=== PATIENT | female | born 1930 | race Caucasian/White ===

== ENCOUNTER 2018-01-26 17:20 | Inpatient (IN) | payer OTHER, MEDICARE ==
[~2018-01-26] VITALS: Ht 160 cm; Wt 62.8 kg
[2018-01-26] MEDS ORDERED: POLYMYXIN B-TMP10 ML OPH (17:32)
[2018-01-26] MEDS ORDERED: SIMVASTATIN10 M1 PO (17:33)
[2018-01-26] MEDS ORDERED: LEVOTHYROXINE50 MCG PO (17:35)
[2018-01-26] MEDS ORDERED: CARBIDOPA-LEVO1 EAC7 PO (17:36)
[2018-01-26] MEDS ORDERED: COZAAR100 M1 PO (17:36)
[2018-01-26] MEDS ORDERED: ESCITALOPRAM OXA5 MG PO (17:37)
[2018-01-26] MEDS ORDERED: ASPIRIN EC81 M1 PO (17:37)
[2018-01-26] MEDS ORDERED: MINOCYCLINE HCL50 M1 PO (17:38)
[2018-01-26] MEDS ORDERED: BETIMOL5 M1 OPH (17:39)
[2018-01-26] MEDS ORDERED: PREDNISOLONE ACE5 ML OPH (17:39)
[2018-01-26] MEDS ORDERED: DORZOLAMIDE HCL10 M1 OPH (17:40)
[2018-01-26] MEDS ORDERED: VITAMIN D400 UNI1 PO (17:41)
[2018-01-26] MEDS ORDERED: CRANBERRY200 MG PO (17:41)
[2018-01-26] MEDS ORDERED: MULTIVITAMINS1 EAC9 PO (17:42)
--- NOTE | 2018-01-26 17:59 | ED MVC/FALL/TRAUMA COMPLAINT ---
History of Present Illness General Chief Complaint: Fall Stated Complaint: FA Source: patient Exam Limitations: no limitations Vital Signs & Intake/Output Vital Signs & Intake/Output Vital Signs Date Time Temp Pulse Resp B/P B/P Pulse O2 O2 Flow FiO2 Mean Ox Delivery Rate 01/26 1936 98.6 68 18 179/63 99 Room Air 01/26 1729 97.7 76 18 180/85 100 Room Air Allergies Coded Allergies: No Known Allergies (01/26/18) Reconcile Medications Aspirin (Ecotrin*) 81 MG TABLET.DR 1 TAB PO DAILY HEART (Reported) Carbidopa/Levodopa (Carbidopa-Levodopa 25-100 Tab) 25 MG-100 MG TABLET 1 TAB PO TID PARKINSONS (Reported) Cholecalciferol (Vitamin D3) (Vitamin D) 400 UNIT CAPSULE (Unknown Dose) SUPPLEMENT (Reported) Cranberry Extract (Cranberry) 200 MG CAPSULE (Unknown Dose) UTI (Reported) Dorzolamide HCl 2 % DROPS 1 GTT OPH BID RIGHT CORNEA (Reported) Escitalopram Oxalate 5 MG TABLET 1 TAB PO DAILY ANXIETY (Reported) Levothyroxine Sodium 50 MCG TABLET 1 TAB PO DAILY HYPERLIPIDEMIA (Reported) Losartan (Cozaar) 100 MG TABLET 1 TAB PO DAILY HTN (Reported) Minocycline HCl 50 MG CAPSULE 1 CAP PO BID RIGHT CORNEA (Reported) Multiple Vitamin (Multivitamins) 1 EACH TABLET 1 TAB PO DAILY SUPPLEMENT ( Reported) Polymyxin B Sulf/Trimethoprim (Polymyxin B-Tmp Eye Drops) 10,000 UNIT-1 MG/ML DROPS 1 GTT OPH SYNTHETIC CORNEA (Reported) Prednisolone Acetate 1 % DROPS.SUSP 1 GTT OPH 4 TIMES/DAY RIGHT CORNEA ( Reported) Simvastatin (Simvastatin*) 10 MG TABLET 1 TAB PO QPM HYPERLIPIDEMIA (Reported ) Timolol (Betimol) 0.5 % DROPS 1 GTT OPH BID RIGHT CORNEA (Reported) Triage Note: PT BIBA FROM HOME C/O SLIP AND FALL OUT OF CHAIR AROUND 1530. PER EMS PT HAD -HEADSTRIKE, -LOC, -BLOOD THINNERS. EMS STATES PT WAS REACHING FOR A PAPER WHILE SITTING AND SLIPPED AND LANDED ON RIGHT SIDE. PT HAS A SORE ELBOW AND A SHORTENED AND ROTATED RIGHT LEG. PTS HIP IS 10/10 PAIN. PT NORMALLY AMBUALTES INDEPDENTENLY AT HOME, PT DENIES CP, SOB, DIZZINESS, ARM NUMBNESS/TINGLING, JAW OR BACK PAIN. PT HAS FALL RISK SOCKS AND BRACELET APPLIED. CHANGED INTO GOWN. PT DENIES ANY SYNCOPAL EPISODE. PT STATES NUMBNESS IN RIGHT FOOT, +PULSES AND PT +ROM OF RIGHT TOES UPON ASSESSMENT. Triage Nurses Notes Reviewed? yes Onset: Just prior to arrival Duration: minute(s):, constant, continues in ED, getting worse Timing: single episode today Severity: severe Injuries/Fall Location: lower extremity (right) Method of Injury: fall Loss of Consciousness: no loss of consciousness Modifying Factors: Worsens With: movement, palpation. HPI: Patient presents for evaluation of injury sustained status post fall prior to arrival. Patient is not sure of why she fell down but denies any associated syncope or loss of consciousness. She is however describing a constant severe right hip pain that worsens with palpation and movement. (Laura DOSHI,Nakul Whitlock) Past History Travel History Traveled to [facility] past 21 day No Medical History Any Pertinent Medical History? see below for history Neurological: Parkinson's disease EENT: R SYNTHETIC CORNEA Cardiovascular: hypertension, hyperlipidemia Psychiatric: anxiety Surgical History Surgical History: non-contributory Psychosocial History What is your primary language Yoruba Tobacco Use: Never used Family History Hx Contributory? No (Laura DOSHI,Nakul Whitlock) Review of Systems Review of Systems Constitutional: Reports: no symptoms. Eyes: Reports: no symptoms. Ears, Nose, Throat, Mouth: Reports: no symptoms. Respiratory: Reports: no symptoms. Cardiovascular: Reports: no symptoms. Gastrointestinal/Abdominal: Reports: no symptoms. Genitourinary: Reports: no symptoms. Musculoskeletal: Reports: see HPI. Skin: Reports: no symptoms. Neurological/Psychological: Reports: no symptoms. All Other Systems: Reviewed and Negative (Laura DOSHI,Nakul Whitlock) Physical Exam Physical Exam General Appearance: SEE BELOW Comments: Gen.: Well-nourished, well-developed, no acute respiratory distress. Mild distress at rest, severe distress with movement of the right lower extremity. Head: Normocephalic, atraumatic, nontender. Eyes: Normal inspection bilaterally, loren, EOMI Ears: Normal inspection bilaterally Nose: Normal inspection Throat/mouth : Moist mucosa Neck: Supple, full range of motion, no goiter, nontender Heart: Regular rate and rhythm, no murmurs rubs or gallops Lungs: Clear to auscultation bilaterally with normal air entry Chest: Nontender Back: Normal range of motion, nontender Abdomen: Soft, nontender, nondistended, normal bowel sounds Pelvis: Stable and nontender Extremities: Right lower extremity: Tenderness of the right hip with movement, the right lower chart is otherwise neurovascularly intact (normal posterior tibialis pulse, normal sensation, normal movement of the toes). The right lower extremity is however shortened and externally rotated. Neurologic: Cranial nerves grossly intact, speech is clear Skin: warm and dry and without ecchymoses or soft tissue swelling or erythema Psychiatric: Calm, cooperative, no apparent delusions or hallucinations Core Measures ACS in differential dx? No CVA/TIA Diagnosis No Sepsis Present: No Sepsis Focused Exam Completed? No (Laura DOSHI,Nakul Whitlock) Progress Differential Diagnosis: fracture, dislocation, sprain, strain Plan of Care: Orders Procedure Date/time Status Nothing by Mouth 01/27 B Active CBC WITHOUT DIFFERENTIAL 01/27 600 Active BASIC ELECTROLYTES PLUS BUN&CR 01/27 600 Active Pathway - chart 01/26 1951 Active Pathway - chart 01/26 1950 Active House Staff 01/26 1950 Active Patient Data 01/26 1950 Active Code Status 01/26 1950 Active Patient Data 01/26 194 Active ED Holding Orders 01/26 1941 Active Admit to inpatient 01/26 1941 Active Vital Signs 01/26 1941 Active Code Status 01/26 194 Complete Add-on Test (ER Only) 01/26 1921 Active Camacho, Insertion/Removal/Asses 01/26 1910 Active CULTURE,URINE 01/26 1910 Active URINALYSIS 01/26 175 Complete PROTHROMBIN TIME 01/26 175 Complete COMPREHENSIVE METABOLIC PANEL 01/26 175 Complete CBC WITHOUT DIFFERENTIAL 01/26 175 Complete EKG 01/26 175 Active VTE Mechanical Prophylaxis 01/26 UNK Active Current Medications Sig/Bozena Start time Last Medication Dose Stop Time Status Admin Heparin Sodium 5,000 UNIT Q8 01/26 2200 UNVr (Porcine) Acetaminophen 650 MG Q6P PRN 01/27 2000 UNVr (Tylenol) Acetaminophen 1,000 MG Q8P PRN 01/27 2000 UNVr (Ofirmev) Morphine Sulfate 2 MG Q4P PRN 01/27 2000 UNVr (Morphine) Laboratory Tests 01/26/181917: Urine Color YEL, Urine Clarity HAZY H, Urine pH 7.5, Ur Specific [place] 1.015, Urine Protein NEG, Urine Ketones NEG, Urine Nitrite NEG, Urine Bilirubin NEG, Urine Urobilinogen 0.2, Ur Leukocyte Esterase NEG, Ur Microscopic SEDIMENT EXAMINED, Urine RBC RARE, Urine WBC RARE, Ur Epithelial Cells FEW, Urine Bacteria PACKD H, Urine Mucus FEW, Urine Hemoglobin NEG, Urine Glucose NEG 01/26/18 1807: Anion Gap 10, Estimated GFR 59 L, BUN/Creatinine Ratio 36.7 H, Glucose 120 H, Calcium 10.2, Total Bilirubin 0.5, AST 28, ALT 21, Alkaline Phosphatase 71, Total Protein 6.5, Albumin 3.8, Globulin 2.7, Albumin/Globulin Ratio 1.4, PT 11.5, INR 1.05, CBC w Diff NO MAN DIFF REQ, RBC 3.95 L, MCV 94.1, MCH 30.8, MCHC 32.7 L, RDW 13.6, MPV 7.9, Gran % 62.4, Lymphocytes % 25.4, Monocytes % 9.5 H, Eosinophils % 2.4, Basophils % 0.3, Absolute Granulocytes 5.1, Absolute Lymphocytes 2.1, Absolute Monocytes 0.8 H, Absolute Eosinophils 0.2, Absolute Basophils 0 Microbiology 01/26 1918 URINE ROUT: Urine Culture - RECD Initial ED EKG: NSR, rate (82) Comments: 01/26/2018 6:56:00 PM 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 (Laura DOSHI,Nakul Whitlock) Diagnostic Imaging: Viewed by Me: Radiology Read. Discussed w/RAD: Radiology Read. Radiology Impression: PATIENT: ZEV COVARRUBIAS PRESENT AGE: 87 PATIENT ACCOUNT NO: [id number] : [birth year] LOCATION: [facility] ORDERING PHYSICIAN: Nakul Sanchez MD SERVICE DATE: 01/26/18 EXAM TYPE : RAD - XRY-AP PELVIS; XRY-CHEST XRAY, SINGLE VIEW; XRY-HIP 2-3 VIEWS, RIGHT EXAMINATION: XR CHEST XR PELVIS XR HIP, RIGHT CLINICAL INFORMATION: Status post fall. Shortening and external rotation of right lower extremity. COMPARISON: None TECHNIQUE: Frontal view of the chest was obtained. Frontal view the pelvis was obtained. 2 views of the right hip were obtained. FINDINGS: Chest: The lungs are mildly hyperexpanded. No focal consolidation, pneumothorax, or evidence of pleural effusion. No mediastinal widening. No acute osseous abnormalities. Pelvis/right hip: Comminuted intertrochanteric right femoral fracture noted, with varus alignment. The right femoral head is well situated over the acetabula. Pelvic rings are maintained. Lower lumbar degenerative changes. Decreased bone mineral density. Suspect bilateral gluteal injection granulomata. IMPRESSION: 1. Right intertrochanteric femoral fracture. 2. No evidence of traumatic thoracic pathology. DICTATED BY: Hans Prasad MD DATE/TIME DICTATED: 01/26/181908 COUNTY TREASURER:[place] DATE/TIME TRANSCRIBED:01/26/181908 CONFIDENTIAL, DO NOT COPY WITHOUT APPROPRIATE AUTHORIZATION. <Electronically signed in Other Vendor System> SIGNED BY: Hans Prasad MD 01/26/181913 Comments: D/W DR. NERI, HE WILL CONSULT. (Radha DOSHI,Zain Denise) Departure Departure Disposition: STILL A PATIENT Condition: Stable Clinical Impression Primary Impression: Closed right hip fracture Qualifiers: Encounter type: initial encounter Qualified Code: S72.001A - Fracture of unspecified part of neck of right femur, initial encounter for closed fracture Referrals: Kathie Selby MD (PCP/Family) Departure Forms: Customer Survey General Discharge Information (Laura DOSHI,Nakul Whitlock) Admission Note Spoke With: Zuri Laws MD Documentation of Exam: Documentation of any treatments & extenuating circumstances including Concerns Regarding Discharge (functional status, medication knowledge or non-compliance, living conditions, etc.) that warrant an admission rather than observation: [ ORTHO CONSULT FOR SURGICAL INTERVENTION ONCE MEDICALLY CLEARED, IV PAIN CONTROL, POSTOP PT EVALUATION] (Zain Garcia MD)
[2018-01-26 18:22] LABS: ABSOLUTE BASOPHIL COUNT 0 /CUMM (0.0-0.2); ABSOLUTE EOSINOPHIL COUNT 0.2 /CUMM (0.0-0.7); ABSOLUTE GRANULOCYTE CT 5.1 /CUMM (1.4-6.5); ABSOLUTE LYMPH COUNT 2.1 /CUMM (1.2-3.4); ABSOLUTE MONOCYTE COUNT 0.8 /CUMM (0.10-0.60); BASOPHIL % 0.3 % (0.0-2.0); EOSINOPHIL % 2.4 % (0-5); GRANULOCYTE % 62.4 % (42.2-75.2); HEMATOCRIT 37.2 % (37-47); MEAN CORPUSCULAR HGB 30.8 PG (27.0-31.0); MEAN CORPUSCULAR HGB CONC 32.7 G/DL (33.0-37.0); MEAN CORPUSCULAR VOLUME 94.1 FL (81.0-99.0); MEAN PLATELET VOLUME 7.9 FL (7.4-10.4); PLATELET COUNT 243 /CUMM (130-400); RBC DISTRIBUTION WIDTH 13.6 % (11.5-14.5); RED BLOOD CELL CT 3.95 /CUMM (4.20-5.40); WHITE BLOOD CELL COUNT 8.2 /CUMM (4.8-10.8)
[2018-01-26 18:32] LABS: PT 11.5 SEC (9.4-12.5)
--- NOTE | 2018-01-26 19:14 | RADIOLOGY REPORT ---
EXAMINATION: XR CHEST XR PELVIS XR HIP, RIGHT CLINICAL INFORMATION: Status post fall. Shortening and external rotation of right lower extremity. COMPARISON: None TECHNIQUE: Frontal view of the chest was obtained. Frontal view the pelvis was obtained. 2 views of the right hip were obtained. FINDINGS: Chest: The lungs are mildly hyperexpanded. No focal consolidation, pneumothorax, or evidence of pleural effusion. No mediastinal widening. No acute osseous abnormalities. Pelvis/right hip: Comminuted intertrochanteric right femoral fracture noted, with varus alignment. The right femoral head is well situated over the acetabula. Pelvic rings are maintained. Lower lumbar degenerative changes. Decreased bone mineral density. Suspect bilateral gluteal injection granulomata. IMPRESSION: 1. Right intertrochanteric femoral fracture. 2. No evidence of traumatic thoracic pathology.
--- NOTE | 2018-01-26 19:46 | History & Physical ---
JeronimoNavarrete 01/26/181944: General Information and HPI MD Statement: I have seen and personally examined ZEV COVRARUBIAS and documented this H& P. The patient is a 87 year old F who presented with a patient stated chief complaint of right hip pain after a fall []. Source of Information: patient, family, old records Exam Limitations: no limitations History of Present Illness: 87 YO F with PMH of HTN, HLD, Parkinson's disease, right sympathetic cornea, hypothyroidism and anxiety brought to ED by EMS with chief complaint of right hip pain after a fall this afternoon. According to patient she was in her usual state of health this afternoon when she went to her room to get some paper and she fell out of the chair. According to the patient she fell down and hit her right side. She developed sudden pain in her right hip 10/10, radiating to right leg and aggravated with movement. Patient denied any chest pain, palpitation, nausea, vomiting, loss of consciousness, hitting her head during the fall, shortness of breath, abdominal pain, diarrhea, constipation and dysuria. Patient reported that she has a problem with balance as she has Parkinson disease. Patient reported that she had mechanical fall 2 months back when she fell down in grocery store and she hit her head. At that time she was admitted in [facility] and CT scan showed some intracranial bleed. Patient is following Dr. Piper for Parkinson treatment. Patient is not following any mat weaver for last echocardiogram was done long time ago. ED course: Vitals: Temperature 97.7, pulse 76, respiratory rate 18, blood pressure 180/87, oxygen saturation 100% on room air Labs: WBC count 8.2, hemoglobin 12.2, hematocrit 37.2, platelet count 243, sodium 139, potassium 4.4, BUN 33, creatinine 0.9, anion gap 10, BUNs/creatinine ratio 36.7, glucose 120, calcium 10.2, AST 28, ALT 21, alkaline phosphatase 71, albumin 3.8, globulin 2.7, PT 11.5, INR 1.05 And EKG patient has left bundle branch block. Allergies/Medications Allergies: Coded Allergies: No Known Allergies (01/26/18) Home Med list Aspirin (Ecotrin*) 81 MG TABLET.DR 1 TAB PO DAILY HEART (Reported) Carbidopa/Levodopa (Carbidopa-Levodopa 25-100 Tab) 25 MG-100 MG TABLET 1 TAB PO 4 TIMES/DAY PARKINSON (Reported) Cholecalciferol (Vitamin D3) (Vitamin D) 400 UNIT CAPSULE (Unknown Dose) SUPPLEMENT (Reported) Cranberry Extract (Cranberry) 200 MG CAPSULE (Unknown Dose) UTI (Reported) Dorzolamide HCl 2 % DROPS 1 GTT OPH BID RIGHT CORNEA (Reported) Escitalopram Oxalate 5 MG TABLET 1 TAB PO DAILY ANXIETY (Reported) Levothyroxine Sodium 50 MCG TABLET 1 TAB PO DAILY HYPERLIPIDEMIA (Reported) Losartan (Cozaar) 100 MG TABLET 1 TAB PO DAILY HTN (Reported) Minocycline HCl 50 MG CAPSULE 1 CAP PO BID RIGHT CORNEA (Reported) Multiple Vitamin (Multivitamins) 1 EACH TABLET 1 TAB PO DAILY SUPPLEMENT ( Reported) Polymyxin B Sulf/Trimethoprim (Polymyxin B-Tmp Eye Drops) 10,000 UNIT-1 MG/ML DROPS 1 GTT OPH SYNTHETIC CORNEA (Reported) Prednisolone Acetate 1 % DROPS.SUSP 1 GTT OPH 4 TIMES/DAY RIGHT CORNEA ( Reported) Simvastatin (Simvastatin*) 10 MG TABLET 1 TAB PO QPM HYPERLIPIDEMIA (Reported ) Timolol (Betimol) 0.5 % DROPS 1 GTT OPH BID RIGHT CORNEA (Reported) Past History Travel History Traveled to [place] past 21 day No Medical History Neurological: Parkinson's disease EENT: R SYNTHETIC CORNEA Cardiovascular: hypertension, hyperlipidemia Psychiatric: anxiety Surgical History Surgical History: non-contributory Review of Systems Review of Systems Constitutional: Reports: no symptoms. EENTM: Reports: no symptoms. Cardiovascular: Reports: no symptoms. Respiratory: Reports: no symptoms. GI: Reports: no symptoms. Genitourinary: Reports: no symptoms. Musculoskeletal: Reports: see HPI. Skin: Reports: no symptoms. Neurological/Psychological: Reports: see HPI. Hematologic/Endocrine: Reports: no symptoms. Exam & Diagnostic Data Last 24 Hrs of Vital Signs/I&O Vital Signs Date Time Temp Pulse Resp B/P B/P Pulse O2 O2 Flow FiO2 Mean Ox Delivery Rate 01/26 1936 98.6 68 18 179/63 99 Room Air 01/26 1729 97.7 76 18 180/85 100 Room Air Physical Exam General Appearance Alert, Oriented X3, Cooperative Skin No Rashes Skin Temp/Moisture Exam: Warm/Dry Sepsis Skin Exam (color): Normal for Ethnicity HEENT Atraumatic, PERRLA, EOMI, Hazziness of right cornea Neck Supple Cardiovascular Normal S1, Normal S2 Lungs Clear to Auscultation, Normal Air Movement Abdomen Soft, No Tenderness Neurological Normal Speech, Normal Tone Extremities No Edema, Right leg external rotated and shorten Last 24 Hrs of Labs/Samm: Laboratory Tests 01/26/181917: Urine Color YEL, Urine Clarity HAZY H, Urine pH 7.5, Ur Specific [place] 1.015, Urine Protein NEG, Urine Ketones NEG, Urine Nitrite NEG, Urine Bilirubin NEG, Urine Urobilinogen 0.2, Ur Leukocyte Esterase NEG, Ur Microscopic SEDIMENT EXAMINED, Urine RBC RARE, Urine WBC RARE, Ur Epithelial Cells FEW, Urine Bacteria PACKD H, Urine Mucus FEW, Urine Hemoglobin NEG, Urine Glucose NEG 01/26/181806: Anion Gap 10, Estimated GFR 59 L, BUN/Creatinine Ratio 36.7 H, Glucose 120 H, Calcium 10.2, Total Bilirubin 0.5, AST 28, ALT 21, Alkaline Phosphatase 71, Total Protein 6.5, Albumin 3.8, Globulin 2.7, Albumin/Globulin Ratio 1.4, PT 11.5, INR 1.05, CBC w Diff NO MAN DIFF REQ, RBC 3.95 L, MCV 94.1, MCH 30.8, MCHC 32.7 L, RDW 13.6, MPV 7.9, Gran % 62.4, Lymphocytes % 25.4, Monocytes % 9.5 H, Eosinophils % 2.4, Basophils % 0.3, Absolute Granulocytes 5.1, Absolute Lymphocytes 2.1, Absolute Monocytes 0.8 H, Absolute Eosinophils 0.2, Absolute Basophils 0 Microbiology 01/26 1918 URINE ROUT: Urine Culture - RECD Assessment/Plan Assessment: 87 YO F with PMH of HTN, HLD, Parkinson's disease, right sympathetic cornea, hypothyroidism and anxiety brought to ED by EMS with chief complaint of right hip pain after a fall this afternoon. We will admit the patient on general medicine floor to treat for right hip fracture Right intertrochanteric femur fracture' -We'll keep the patient nothing by mouth for possible surgery -Pain management -IV Protonix -Orthopedic consult -Revised cardiac risk index is low for any perioperative cardiac complication -Echocardiogram considering patient's left bundle branch block as there is no previous EKG to compare History of Parkinson disease: -Continue levodopa carbidopa History of hyperlipidemia and hypertension: -Continue home medications History of hypothyroidism: -Continue levothyroxine History of right cornea transplant: -Continue all her eyedrops History of anxiety: -Continue home medication DVT prophylaxis: Mechanical and subcutaneous heparin CODE STATUS: Full code As Ranked By This Provider Problem List: 1. Closed right hip fracture Qualifiers Encounter type: initial encounter Qualified Code: S72.001A - Fracture of unspecified part of neck of right femur, initial encounter for closed fracture Core Measures/Misc (07/20) Acute Coronary Syndrome ACS Diagnosis: No Congestive Heart Failure Congestive Heart Failure Diagnosis No Cerebrovascular Accident CVA/TIA Diagnosis: No VTE (View Protocol) VTE Risk Factors Age>40 No Mechanical VTE Prophylaxis d/t N/A MechProphylax Ordered No VTE Pharm Prophylaxis d/t NA PharmProphylax ordered Sepsis (View protocol) Sepsis Present: No Jenny Stephens 01/27/18 0032: Resident Review Statement Resident Statement: examined this patient, discussed with restaurant management internship, agreed with restaurant management internship Other Findings: Patient is 87-year-old female with past medical history significant for hypertension, dyslipidemia, Parkinson's disease on carbidopa levodopa, hypothyroidism, right-sided eye blindness and synthetic cornea came in to emergency room after a mechanical fall today. Patient endorses that she was in her usual state of health and was trying to assemble some papers on her chest or welt drawer her room when all of his surgical and most probably she tripped over one something/lost her balance and fell on the ground. She denied any loss of consciousness, hitting her head, any chest pain, palpitations, headache prior to or after the fall. She denied any fever, chills, cough, shortness of breath. She had recent fall almost 2 months ago where she hit her head and was admitted to [facility] with minor intracranial bleed. She continues to take her aspirin daily since then. She was scheduled for physical therapy tomorrow for her Parkinson's disease. Vital signs on admission were temperature 97.7, pulse 76, respiratory rate 18, blood pressure 180 was 87 she was saturating fine on room air Labs are significant for WBC count 8.2, hemoglobin 10.2, hematocrit 37.2, platelet count 243, INR 1.05, sodium 139, potassium 4.4, BUNs 33, creatinine 0.9 , EKG showed left bundle branch block but no EKG was present for comparison On examination Patient is alert and oriented 3 Head atraumatic Neck supple Chest clear to auscultate Heart S1, S2 normal with no added sound Abdomen soft with no organomegaly Extremities shows right-sided lower extremity shortening and external rotation No neurological deficit noted Assessment and plan 87-year-old female with normal functioning status at baseline, ambulating without cane or walker, past medical history of hypertension, dyslipidemia, Parkinson's disease and synthetic cornea with right sided blindness came after a mechanical fall resulted in right hip fracture. We will admit patient under medical floor and will address following problems Problem list 1. History of hypertension dyslipidemia 2. History of mechanical fall resulted in right hip fracture(right intertrochanteric femoral fracture to) 3. History of right-sided eye blindness and synthetic cornea 4. History of Parkinson's disease on carbidopa levodopa Plan 1. We will admit patient on general medical floor. 2. We will monitor her CbC and basic electrolyte panels 3. Aspiration her left bundle branch block on EKG and there is no EKG for comparison we would do echocardiogram in a.m. and also cardiology evacuation/ cardiology clearance before proceeding with the surgery. 4. Meanwhile we will keep her nothing by mouth and we will start her on gentle IV hydration . 5. We'll continue all her home medications including levothyroxine, antihypertensives, and carbidopa levodopa. 6. Her RCRI assessment score is 0.4% risk of bonny-operative major cardiac events. She is class I risk. Patient is full code Pharmacological DVT prophylaxis Patient is nothing by mouth Zuri Laws 01/27/18 0253: Attending MD Review Statement Attending Statement Attending MD Statement: examined this patient, discuss w/resident/PA/SKEIN SPOOLER, agreed w/resident/PA/SKEIN SPOOLER, reviewed EMR data (avail), reviewed images, amended to note Attending Assessment/Plan: CC: Fall PMH: Parkinson's disease more than 10 years, HTN, HLD, anxiety/depression, right eye blindness Patient was brought in ER through EMS after fall. Patient states that she had slippery socks and slipped and fell on her right side at home patient denies any head trauma, loss of consciousness after the fall. Patient denies any presyncopal episode, chest pain, palpitations before the fall. Immediately after the fall she noticed a right thigh and hip pain so EMS was called and she was brought in ER. Patient normally ambulates at home independently, no exertional chest pain or shortness of breath. No history of coronary artery disease, was investigated with echocardiogram many years back. Other than the right thigh and hip pain patient does not have any other complaints. She moved from [place] 2 years back. Her last fall was 2 months back. She is currently getting physical therapy at home for her Parkinson's disease. Vitals: Afebrile, pulse in 70s, RR 18, blood pressure 180/85, saturating 100% on room air. On exam: A O 3, cooperative, right eye redness, no acute distress, neck supple, JVD normal, no lymphadenopathy, mucosa moist, no focal neurological deficit, no dependent edema, no obvious skin rashes or inflammation CVS: S1-S2, RRR. RS: Clear to auscultate bilaterally. Abdomen: Soft, NT, ND, bowel sounds present. Right lower extremity is shorter than left, tenderness on the hip and thigh, peripheral pulses normal. No open wounds or bruises. X-ray chest, hip, pelvis: 1. Right intertrochanteric femoral fracture. 2. No evidence of traumatic thoracic pathology. CT head without IV contrast: No acute intracranial pathology. ECG: Left bundle branch block, no previous comparison available Assessment and plan 87-year-old female with multiple comorbidities mentioned above presented in ER after mechanical fall. Patient did not have any syncopal or presyncopal event. No head trauma or open injury, no loss of consciousness. Patient is found to have a right intertrochanteric femoral fracture which will require surgery. Patient is active at baseline, ambulates without assistance, denies any exertional angina or shortness of breath. Patient was never investigated for any CAD with stress tests. She has left bundle branch block and there is no comparison available. Even though RCRI is low risk patient would benefit from 2- D echocardiogram and cardiac clearance before the surgery given left bundle branch block of unknown duration. + Accidental fall + Right intertrochanteric femoral fracture + Preop evaluation + History of Parkinson's disease, HTN, HLD, anxiety/depression, right eye blindness - Admit to general medicine - Continue gentle hydration - Nothing by mouth after midnight - Adequate pain control - 2-D echocardiogram and cardiology clearance for surgery - Continue her home medications for Sinemet, SSRI, Synthroid, losartan and her eyedrops. - Continue Camacho catheter - Hold aspirin - DVT prophylaxis after surgery - Repeat labs in a.m.
--- NOTE | 2018-01-26 20:55 | CT SCAN REPORT ---
EXAMINATION: CT HEAD WITHOUT CONTRAST CLINICAL INFORMATION: Intracranial pathology COMPARISON: None TECHNIQUE: Contiguous axial imaging was performed from the skull base to vertex without intravenous administration of contrast. DLP: 619.12 mGy-cm FINDINGS: There is no evidence of acute intracranial hemorrhage or territorial infarction. No abnormal mass effect or midline shift is seen. Blandon to white matter differentiation is well preserved. No extra-axial fluid collections are identified. There is atrophy with prominence of the ventricles and the sulci and hypodensity of the periventricular white matter due to chronic small vessel ischemic disease. There is vascular calcifications of the internal carotid arteries bilaterally. The osseous structures and soft tissues are normal. The mastoid air cells and visualized portions of the paranasal sinuses are well aerated. IMPRESSION: No acute intracranial pathology.
--- NOTE | 2018-01-26 21:00 | Cons- Orthopedic ---
General Information and HPI Consulting Request Date of Consult: 01/26/18 Requested By: Zuri Laws MD Reason for Consult: right intertrochanteric hip fx History of Present Illness: 87yoF was ambulating in her home when she lost her footing "maybe on the rug" and fell on her right side. She c/o right hip pain, denies loc/head injury, no toher extremity injuries, no cp/sob/dizziness. Her was home, heard her call out from other room and came to her aid. She offers no other complaints. She is at high risk for falls, as she does have parkinson's disease and no sight in right eye, and recently changed carpeting in her home. Allergies/Medications Allergies: Coded Allergies: No Known Allergies (01/26/18) Home Med List: Aspirin (Ecotrin*) 81 MG TABLET.DR 1 TAB PO DAILY HEART (Reported) Carbidopa/Levodopa (Carbidopa-Levodopa 25-100 Tab) 25 MG-100 MG TABLET 1 TAB PO 4 TIMES/DAY PARKINSON (Reported) Cholecalciferol (Vitamin D3) (Vitamin D) 400 UNIT CAPSULE (Unknown Dose) SUPPLEMENT (Reported) Cranberry Extract (Cranberry) 200 MG CAPSULE (Unknown Dose) UTI (Reported) Dorzolamide HCl 2 % DROPS 1 GTT OPH BID RIGHT CORNEA (Reported) Escitalopram Oxalate 5 MG TABLET 1 TAB PO DAILY ANXIETY (Reported) Levothyroxine Sodium 50 MCG TABLET 1 TAB PO DAILY HYPERLIPIDEMIA (Reported) Losartan (Cozaar) 100 MG TABLET 1 TAB PO DAILY HTN (Reported) Minocycline HCl 50 MG CAPSULE 1 CAP PO BID RIGHT CORNEA (Reported) Multiple Vitamin (Multivitamins) 1 EACH TABLET 1 TAB PO DAILY SUPPLEMENT ( Reported) Polymyxin B Sulf/Trimethoprim (Polymyxin B-Tmp Eye Drops) 10,000 UNIT-1 MG/ML DROPS 1 GTT OPH SYNTHETIC CORNEA (Reported) Prednisolone Acetate 1 % DROPS.SUSP 1 GTT OPH 4 TIMES/DAY RIGHT CORNEA ( Reported) Simvastatin (Simvastatin*) 10 MG TABLET 1 TAB PO QPM HYPERLIPIDEMIA (Reported ) Timolol (Betimol) 0.5 % DROPS 1 GTT OPH BID RIGHT CORNEA (Reported) Past History Medical History Neurological: Parkinson's disease EENT: R SYNTHETIC CORNEA Cardiovascular: hypertension, hyperlipidemia Psychiatric: anxiety Psychosocial History Where Do You Live? Home Who Do You Live With? spouse Services at Home: None Functional Ability Ambulation: independent Exam & Diagnostic Data Vital Signs and I&O Vital Signs Date Time Temp Pulse Resp B/P B/P Pulse O2 O2 Flow FiO2 Mean Ox Delivery Rate 01/27 2052 97.9 68 16 174/74 98 Room Air 01/27 1936 98.6 68 18 179/63 99 Room Air 01/26 1729 97.7 76 18 180/85 100 Room Air Intake & Output 01/27 0000 01/26 1600 01/26 0800 01/26 0000 01/25 1600 Intake Total Output Total Balance Patient 135 lb Weight Weight Reported by Patient Measurement Method Physical Exam: GEN- NAD CARD- s1s2 RRR PULM- CTAB ABD- soft nt EXT- r hip ttp, skin intact, no ecchymosis, +sensate, gross dorsi/plantarflexion intact, rle shortened, externally rotated. calves soft nt bl. - dewitt in place, clr yellow urine Last 24 Hours of Labs: Laboratory Tests 01/26 01/26 1918 1807 Chemistry Sodium (137 - 145 mmol/L) 139 Potassium (3.5 - 5.1 mmol/L) 4.4 Chloride (98 - 107 mmol/L) 102 Carbon Dioxide (22 - 30 mmol/L) 27 Anion Gap (5 - 16) 10 BUN (7 - 17 mg/dL) 33 H Creatinine (0.5 - 1.0 mg/dL) 0.9 Estimated GFR (>60 ml/min) 59 L BUN/Creatinine Ratio (7 - 25 %) 36.7 H Glucose (65 - 99 mg/dL) 120 H Calcium (8.4 - 10.2 mg/dL) 10.2 Total Bilirubin (0.2 - 1.3 mg/dL) 0.5 AST (14 - 36 U/L) 28 ALT (9 - 52 U/L) 21 Alkaline Phosphatase (<127 U/L) 71 Total Protein (6.3 - 8.2 g/dL) 6.5 Albumin (3.5 - 5.0 g/dL) 3.8 Globulin (1.9 - 4.2 gm/dL) 2.7 Albumin/Globulin Ratio (1.1 - 2.2 %) 1.4 Coagulation PT (9.4 - 12.5 SEC) 11.5 INR (0.90 - 1.19) 1.05 Hematology CBC w Diff NO MAN DIFF REQ WBC (4.8 - 10.8 /CUMM) 8.2 RBC (4.20 - 5.40 /CUMM) 3.95 L Hgb (12.0 - 16.0 G/DL) 12.2 Hct (37 - 47 %) 37.2 MCV (81.0 - 99.0 FL) 94.1 MCH (27.0 - 31.0 PG) 30.8 MCHC (33.0 - 37.0 G/DL) 32.7 L RDW (11.5 - 14.5 %) 13.6 Plt Count (130 - 400 /CUMM) 243 MPV (7.4 - 10.4 FL) 7.9 Gran % (42.2 - 75.2 %) 62.4 Lymphocytes % (20.5 - 51.1 %) 25.4 Monocytes % (1.7 - 9.3 %) 9.5 H Eosinophils % (0 - 5 %) 2.4 Basophils % (0.0 - 2.0 %) 0.3 Absolute Granulocytes (1.4 - 6.5 /CUMM) 5.1 Absolute Lymphocytes (1.2 - 3.4 /CUMM) 2.1 Absolute Monocytes (0.10 - 0.60 /CUMM) 0.8 H Absolute Eosinophils (0.0 - 0.7 /CUMM) 0.2 Absolute Basophils (0.0 - 0.2 /CUMM) 0 Urines Urine Color (YEL,AMB,STR) YEL Urine Clarity (CLEAR) HAZY H Urine pH (5.0 - 8.0) 7.5 Ur Specific [place] (1.001 - 1.035) 1.015 Urine Protein (NEG,<30 MG/DL) NEG Urine Ketones (NEG) NEG Urine Nitrite (NEG) NEG Urine Bilirubin (NEG) NEG Urine Urobilinogen (0.1 - 1.0 EU/dl) 0.2 Ur Leukocyte Esterase (NEG) NEG Ur Microscopic SEDIMENT EXAMINED Urine RBC (0 - 5 /HPF) RARE Urine WBC (0 - 2 /HPF) RARE Ur Epithelial Cells (NONE,FEW) FEW Urine Bacteria (NEG/NONE) PACKD H Urine Mucus (FEW,NONE) FEW Urine Hemoglobin (NEG) NEG Urine Glucose (N MG/DL) NEG Imaging Results: SERVICE DATE: 01/26/18 EXAM TYPE: RAD - XRY-AP PELVIS; XRY-CHEST XRAY, SINGLE VIEW; XRY-HIP 2-3 VIEWS, RIGHT EXAMINATION: XR CHEST XR PELVIS XR HIP, RIGHT CLINICAL INFORMATION: Status post fall. Shortening and external rotation of right lower extremity. COMPARISON: None TECHNIQUE: Frontal view of the chest was obtained. Frontal view the pelvis was obtained. 2 views of the right hip were obtained. FINDINGS: Chest: The lungs are mildly hyperexpanded. No focal consolidation, pneumothorax, or evidence of pleural effusion. No mediastinal widening. No acute osseous abnormalities. Pelvis/right hip: Comminuted intertrochanteric right femoral fracture noted, with varus alignment. The right femoral head is well situated over the acetabula. Pelvic rings are maintained. Lower lumbar degenerative changes. Decreased bone mineral density. Suspect bilateral gluteal injection granulomata. IMPRESSION: 1. Right intertrochanteric femoral fracture. 2. No evidence of traumatic thoracic pathology. Assessment/Plan Assessment/Plan A- 87yoF s/p unwitnessed fall at home with right intertrochanteric femur fx requiring surgical intervention, currently stable awaiting medical clearance. P- Agree w medical admission. prn pain meds dewitt hold asa or pending medical clearance npo p mn, ivf Consult Acknowledgment - Thank you for your consult request.
--- NOTE | 2018-01-27 02:54 | Admission Certification ---
Admission Certification Certification Statement - As attending physician, I certify that at the time of - admission, based on clinical presentation, severity of - symptoms, need for further diagnostic testing and - therapeutic interventions, and risk of adverse outcomes - without in-hospital treatment, in my clinical assessment, - this patient requires an acute hospital stay for a minimum - of two nights or longer. I have also considered psychsocial - factors such as support system, advanced age, financial - issues, cognitive issues, and failed out-patient treatments, - past re-admission history, safety of patient, and lack of - compliance as applicable. Specific rationale supporting this admission is: Right intertrochanteric femoral fracture, accidental fall
[2018-01-27 06:02] VITALS: BP 125/58
[2018-01-27 06:04] LABS: ABSOLUTE BASOPHIL COUNT 0 /CUMM (0.0-0.2); ABSOLUTE EOSINOPHIL COUNT 0.2 /CUMM (0.0-0.7); PLATELET COUNT 185 /CUMM (130-400)
[2018-01-27 06:07] LABS: ABSOLUTE GRANULOCYTE CT 5.5 /CUMM (1.4-6.5); ABSOLUTE LYMPH COUNT 2.1 /CUMM (1.2-3.4); BASOPHIL % 0.2 % (0.0-2.0); EOSINOPHIL % 2.2 % (0-5); GRANULOCYTE % 62.2 % (42.2-75.2); MEAN CORPUSCULAR HGB 31.1 PG (27.0-31.0); MEAN PLATELET VOLUME 7.1 FL (7.4-10.4); RED BLOOD CELL CT 3.25 /CUMM (4.20-5.40); WHITE BLOOD CELL COUNT 8.8 /CUMM (4.8-10.8)
[2018-01-27 06:09] LABS: HEMATOCRIT 30.5 % (37-47)
--- NOTE | 2018-01-27 08:33 | PN- Housestaff ---
Bhavya DOSHI,Isdeil 01/27/18 0833: Subjective Follow-up For: Hip fracture post mechanical fall Subjective: Afebrile, hemodynamically stable, and saturating well on room air. Patient is complaining of severe right hip pain that slightly improved after morphine. Patient denies any other current active complaints. Review of Systems Constitutional: Reports: see HPI. Denies: chills, diaphoresis, fever. Objective Last 24 Hrs of Vital Signs/I&O Vital Signs Date Time Temp Pulse Resp B/P B/P Pulse O2 O2 Flow FiO2 Mean Ox Delivery Rate 01/27 1016 97.7 71 18 125/58 01/27 0603 97.7 71 18 125/58 98 Room Air 01/27 0602 97.7 71 18 125/58 98 Room Air 01/27 0340 98.0 70 18 133/60 98 Room Air 01/26 2052 97.9 68 16 174/74 98 Room Air 01/26 1936 98.6 68 18 179/63 99 Room Air 01/26 1729 97.7 76 18 180/85 100 Room Air Intake & Output 01/27 1600 01/27 0800 01/27 0000 Intake Total Output Total Balance Patient 72.575 kg 61.235 kg Weight Weight Reported by Patient Reported by Patient Measurement Method Physical Exam General Appearance: Alert, Oriented X3, Cooperative, No Acute Distress Skin: No Rashes HEENT: Atraumatic, PERRLA, EOMI, Mucous Membr. moist/pink Neck: No JVD Cardiovascular: Regular Rate, Normal S1, Normal S2, No Murmurs Lungs: Clear to Auscultation, Normal Air Movement Abdomen: Soft, No Tenderness Neurological: Normal Speech, Strength at 5/5 X4 Ext Extremities: No Clubbing, No Cyanosis, No Edema Current Medications: Current Medications Sig/Bozena Start time Last Medication Dose Route Stop Time Status Admin Acetaminophen 0 .STK-MED ONE 01/27 0737 DC IV Acetaminophen 650 MG Q6P PRN 01/27 2000 AC PO Acetaminophen 1,000 MG Q8P PRN 01/27 2000 AC 01/27 IV 0739 Acetaminophen 0 .STK-MED ONE 01/26 182 DC IV Acetaminophen 1,000 MG ONCE ONE 01/26 1800 DC 01/26 N/A 1 UNIT IV 01/26 181 182 Aspirin Buffered 81 MG DAILY 01/27 1000 CAN PO Atorvastatin Calcium 10 MG 1700 01/27 1700 AC PO Carbidopa/Levodopa 1 TAB 4 TIMES/DAY 01/27 1000 AC 01/27 PO 1016 Carbidopa/Levodopa 1 TAB TID 01/26 2200 DC 01/26 PO 2220 Dextrose/Sodium 1,000 ML Q20H 01/27 0145 AC 01/27 Chloride IV 0350 Dorzolamide HCl 1 GTT BID 01/27 1026 UNVr OPH Escitalopram Oxalate 5 MG DAILY 01/27 1000 AC 01/27 PO 1016 Heparin Sodium 0 .STK-MED ONE 01/27 0547 DC (Porcine) .ROUTE Heparin Sodium 5,000 UNIT Q8 01/26 2200 AC 01/27 (Porcine) SC 0558 Heparin Sodium 0 .STK-MED ONE 01/26 2149 DC (Porcine) .ROUTE Influenza Virus 0.5 ML ONCE ONE 01/27 0315 DC Vaccine IM 01/27 0316 Levothyroxine Sodium 0.05 MG DAILY 01/27 1000 AC 01/27 PO 1016 Losartan Potassium 100 MG DAILY 01/27 1000 AC 01/27 PO 1016 Minocycline HCl 50 MG BID 01/27 1029 UNVr PO Morphine Sulfate 0 .STK-MED ONE 01/27 0347 DC .ROUTE Morphine Sulfate 0 .STK-MED ONE 01/26 2149 DC .ROUTE Morphine Sulfate 2 MG Q4P PRN 01/27 2000 DC IV Morphine Sulfate 2 MG Q4P PRN 01/27 2000 AC 01/27 IV 0340 Morphine Sulfate 0 .STK-MED ONE 01/26 194 DC .ROUTE Morphine Sulfate 2 MG ONCE ONE 01/26 1930 DC 01/26 IV 01/26 193 194 Morphine Sulfate 0 .STK-MED ONE 01/26 1823 DC .ROUTE Morphine Sulfate 2 MG ONCE ONE 01/26 1800 DC 01/26 IV 01/26 180 1824 Polymyxin/ 1 GTT DAILY 01/27 1026 UNVr Trimethoprim Sulfate OPH Prednisolone 1 GTT 4 TIMES/DAY 01/27 1026 UNVr OPH Timolol Maleate 1 GTT BID 01/26 2200 AC 01/27 OPH 1016 Last 24 Hrs of Lab/Samm Results Last 24 Hrs of Labs/Mics: Laboratory Tests 01/27/18 0556: Anion Gap 6, Estimated GFR > 60, BUN/Creatinine Ratio 32.5 H, CBC w Diff NO MAN DIFF REQ, RBC 3.25 L, MCV 94.0, MCH 31.1 H, MCHC 33.0, RDW 14.0, MPV 7.1 L, Gran % 62.2, Lymphocytes % 23.7, Monocytes % 11.7 H, Eosinophils % 2.2, Basophils % 0.2, Absolute Granulocytes 5.5, Absolute Lymphocytes 2.1, Absolute Monocytes 1.0 H, Absolute Eosinophils 0.2, Absolute Basophils 0 01/26/181917: Urine Color YEL, Urine Clarity HAZY H, Urine pH 7.5, Ur Specific [place] 1.015, Urine Protein NEG, Urine Ketones NEG, Urine Nitrite NEG, Urine Bilirubin NEG, Urine Urobilinogen 0.2, Ur Leukocyte Esterase NEG, Ur Microscopic SEDIMENT EXAMINED, Urine RBC RARE, Urine WBC RARE, Ur Epithelial Cells FEW, Urine Bacteria PACKD H, Urine Mucus FEW, Urine Hemoglobin NEG, Urine Glucose NEG 01/26/181806: Anion Gap 10, Estimated GFR 59 L, BUN/Creatinine Ratio 36.7 H, Glucose 120 H, Calcium 10.2, Total Bilirubin 0.5, AST 28, ALT 21, Alkaline Phosphatase 71, Total Protein 6.5, Albumin 3.8, Globulin 2.7, Albumin/Globulin Ratio 1.4, PT 11.5, INR 1.05, CBC w Diff NO MAN DIFF REQ, RBC 3.95 L, MCV 94.1, MCH 30.8, MCHC 32.7 L, RDW 13.6, MPV 7.9, Gran % 62.4, Lymphocytes % 25.4, Monocytes % 9.5 H, Eosinophils % 2.4, Basophils % 0.3, Absolute Granulocytes 5.1, Absolute Lymphocytes 2.1, Absolute Monocytes 0.8 H, Absolute Eosinophils 0.2, Absolute Basophils 0 Microbiology 01/26 1918 URINE ROUT: Urine Culture - RES Assessment/Plan Assessment: 87-year-old female with PMH: Hypothyroidism, parkinson's disease, HTN, HLD, anxiety, depression, and right eye blindness post cataract procedure who presented to the ED after mechanical fall. She denies palpitation, chest pain, LOC, or dizziness prior to the fall. She denies head trauma, biting tongue, or seizure activity during the fall. She denies confusion, weakness, or numbness post the fall. Immediately after the fall she had severe bright thigh pain and she wasn't able to bear weight on her right leg. At baseline she ambulates independently, at average she walks around 2 blocks daily and use bicycle intermittently at home. She can go flight of stairs without complaints. On admission she was found to have LBBB of unknown duration. She has no cardiovascular history except hypertension and never had any cardiac workup. On physical exam she has systolic murmur that most likely 2 /2 aortic stenosis or sclerosis. Problem list * Accidental fall * Right intertrochanteric femoral fracture * Preop evaluation * Hypothyroidism * Parkinson's disease * HTN * HLD * Anxiety/depression * Right eye blindness Plan * Met's score >4. Cardiology estimated risk of cardiac event as 5%. pt agrees to the risk. * Pending echocardiogram, as per cardiology she can go for surgery without echo result * Continue IV hydration while nothing by mouth * Pain control as needed with morphine * Continue her home medications for Sinemet, SSRI, Synthroid, losartan and her eyedrops. * Hold aspirin until post surgery * DVT prophylaxis post surgery as per orthopedic recommendation * Full code Problem List: 1. Closed right hip fracture Pain Ratin Pain Location: Right intertrochanteric femoral fracture. Pain Goal: Remain pain free Pain Plan: See A&P Tomorrow's Labs & Rationales: See A&P Pa DOSHI,Carlie 01/27/18 1113: Attending MD Review Statement Attending Statement Attending MD Statement: examined this patient, discuss w/resident/PA/NETWORK SECURITY CONSULTANT, agreed w/resident/PA/NETWORK SECURITY CONSULTANT, discussed with family, reviewed EMR data (avail), discussed with nursing, discussed with case mgmt, reviewed images, amended to note Attending Assessment/Plan: Patient seen and examined, c/o pain in right hip. Otherwise denies any cp, sob. Slipped and fell and has sustained Right intertrochanteric femoral fracture. Vital Signs Date Time Temp Pulse Resp B/P B/P Pulse O2 O2 Flow FiO2 Mean Ox Delivery Rate 01/27 1016 97.7 71 18 125/58 01/27 0603 97.7 71 18 125/58 98 Room Air 01/27 0602 97.7 71 18 125/58 98 Room Air 01/27 0340 98.0 70 18 133/60 98 Room Air 01/26 2052 97.9 68 16 174/74 98 Room Air 01/26 1936 98.6 68 18 179/63 99 Room Air 01/26 1729 97.7 76 18 180/85 100 Room Air on exam: aox3, nad. cv; s1,s2, rrr, + systolic murmur resp; clear abd; soft, nt, bs+ ext; no edema. Laboratory Tests 01/27 01/26 0556 1918 Chemistry Sodium (137 - 145 mmol/L) 141 Potassium (3.5 - 5.1 mmol/L) 4.1 Chloride (98 - 107 mmol/L) 106 Carbon Dioxide (22 - 30 mmol/L) 28 Anion Gap (5 - 16) 6 BUN (7 - 17 mg/dL) 26 H Creatinine (0.5 - 1.0 mg/dL) 0.8 Estimated GFR (>60 ml/min) > 60 BUN/Creatinine Ratio (7 - 25 %) 32.5 H Hematology CBC w Diff NO MAN DIFF REQ WBC (4.8 - 10.8 /CUMM) 8.8 RBC (4.20 - 5.40 /CUMM) 3.25 L Hgb (12.0 - 16.0 G/DL) 10.1 L Hct (37 - 47 %) 30.5 L MCV (81.0 - 99.0 FL) 94.0 MCH (27.0 - 31.0 PG) 31.1 H MCHC (33.0 - 37.0 G/DL) 33.0 RDW (11.5 - 14.5 %) 14.0 Plt Count (130 - 400 /CUMM) 185 MPV (7.4 - 10.4 FL) 7.1 L Gran % (42.2 - 75.2 %) 62.2 Lymphocytes % (20.5 - 51.1 %) 23.7 Monocytes % (1.7 - 9.3 %) 11.7 H Eosinophils % (0 - 5 %) 2.2 Basophils % (0.0 - 2.0 %) 0.2 Absolute Granulocytes (1.4 - 6.5 /CUMM) 5.5 Absolute Lymphocytes (1.2 - 3.4 /CUMM) 2.1 Absolute Monocytes (0.10 - 0.60 /CUMM) 1.0 H Absolute Eosinophils (0.0 - 0.7 /CUMM) 0.2 Absolute Basophils (0.0 - 0.2 /CUMM) 0 Urines Urine Color (YEL,AMB,STR) YEL Urine Clarity (CLEAR) HAZY H Urine pH (5.0 - 8.0) 7.5 Ur Specific [place] (1.001 - 1.035) 1.015 Urine Protein (NEG,<30 MG/DL) NEG Urine Ketones (NEG) NEG Urine Nitrite (NEG) NEG Urine Bilirubin (NEG) NEG Urine Urobilinogen (0.1 - 1.0 EU/dl) 0.2 Ur Leukocyte Esterase (NEG) NEG Ur Microscopic SEDIMENT EXAMINED Urine RBC (0 - 5 /HPF) RARE Urine WBC (0 - 2 /HPF) RARE Ur Epithelial Cells (NONE,FEW) FEW Urine Bacteria (NEG/NONE) PACKD H Urine Mucus (FEW,NONE) FEW Urine Hemoglobin (NEG) NEG Urine Glucose (N MG/DL) NEG 01/26 1807 Chemistry Sodium (137 - 145 mmol/L) 139 Potassium (3.5 - 5.1 mmol/L) 4.4 Chloride (98 - 107 mmol/L) 102 Carbon Dioxide (22 - 30 mmol/L) 27 Anion Gap (5 - 16) 10 BUN (7 - 17 mg/dL) 33 H Creatinine (0.5 - 1.0 mg/dL) 0.9 Estimated GFR (>60 ml/min) 59 L BUN/Creatinine Ratio (7 - 25 %) 36.7 H Glucose (65 - 99 mg/dL) 120 H Calcium (8.4 - 10.2 mg/dL) 10.2 Total Bilirubin (0.2 - 1.3 mg/dL) 0.5 AST (14 - 36 U/L) 28 ALT (9 - 52 U/L) 21 Alkaline Phosphatase (<127 U/L) 71 Total Protein (6.3 - 8.2 g/dL) 6.5 Albumin (3.5 - 5.0 g/dL) 3.8 Globulin (1.9 - 4.2 gm/dL) 2.7 Albumin/Globulin Ratio (1.1 - 2.2 %) 1.4 Coagulation PT (9.4 - 12.5 SEC) 11.5 INR (0.90 - 1.19) 1.05 Hematology CBC w Diff NO MAN DIFF REQ WBC (4.8 - 10.8 /CUMM) 8.2 RBC (4.20 - 5.40 /CUMM) 3.95 L Hgb (12.0 - 16.0 G/DL) 12.2 Hct (37 - 47 %) 37.2 MCV (81.0 - 99.0 FL) 94.1 MCH (27.0 - 31.0 PG) 30.8 MCHC (33.0 - 37.0 G/DL) 32.7 L RDW (11.5 - 14.5 %) 13.6 Plt Count (130 - 400 /CUMM) 243 MPV (7.4 - 10.4 FL) 7.9 Gran % (42.2 - 75.2 %) 62.4 Lymphocytes % (20.5 - 51.1 %) 25.4 Monocytes % (1.7 - 9.3 %) 9.5 H Eosinophils % (0 - 5 %) 2.4 Basophils % (0.0 - 2.0 %) 0.3 Absolute Granulocytes (1.4 - 6.5 /CUMM) 5.1 Absolute Lymphocytes (1.2 - 3.4 /CUMM) 2.1 Absolute Monocytes (0.10 - 0.60 /CUMM) 0.8 H Absolute Eosinophils (0.0 - 0.7 /CUMM) 0.2 Absolute Basophils (0.0 - 0.2 /CUMM) 0 A/P: 87 y/o F with pmh sig for HTN, HLD, Parkinson's disease, right sympathetic cornea, hypothyroidism and anxiety admitted with a mechanical fall and sustained a right intertrochanteric femur fracture. Patient needs surgery. Patient has been seen by cardiology. She got an echo. According to inside sales consultant note, at present she is at mildly increased, but not prohibitive risk of about 5% of an untoward cardiac event during surgery. Continue other home medications continue current pain management. DVT px: Heparin subcutaneous.
--- NOTE | 2018-01-27 08:52 | Cons- Cardiology ---
General Information and HPI Consulting Request Date of Consult: 01/27/18 Requested By: Zuri Laws MD History of Present Illness: Sabrina is an 87 year old female with history of hypertension, dyslipidemia and Parkinson's disease. Due to poor sight in her right eye and her Parkinson's disease she tends to be very inactive but can walk slowly. Yesterday, this patient had what appears to be a mechanical fall resulting in a right hip fracture. The patient was alert throughout the event. At her baseline, she denies any chest pain, pressure or tightness, shortness of breath at her current level of activity, lightheadedness or palpitations. The patient does have what she describes as a heartburn sensation that radiates toward her neck. The discomfort is most prominent when she lies down and is described as a mild to moederate burning sensation. She was discovered to have a LBBB on her ECG and has a murmur of aortic stenosis. Allergies/Medications Allergies: Coded Allergies: No Known Allergies (01/26/18) Home Med List: Aspirin (Ecotrin*) 81 MG TABLET.DR 1 TAB PO DAILY HEART (Reported) Carbidopa/Levodopa (Carbidopa-Levodopa 25-100 Tab) 25 MG-100 MG TABLET 1 TAB PO 4 TIMES/DAY [place] (Reported) Cholecalciferol (Vitamin D3) (Vitamin D) 400 UNIT CAPSULE (Unknown Dose) SUPPLEMENT (Reported) Cranberry Extract (Cranberry) 200 MG CAPSULE (Unknown Dose) UTI (Reported) Dorzolamide HCl 2 % DROPS 1 GTT OPH BID RIGHT CORNEA (Reported) Escitalopram Oxalate 5 MG TABLET 1 TAB PO DAILY ANXIETY (Reported) Levothyroxine Sodium 50 MCG TABLET 1 TAB PO DAILY HYPERLIPIDEMIA (Reported) Losartan (Cozaar) 100 MG TABLET 1 TAB PO DAILY HTN (Reported) Minocycline HCl 50 MG CAPSULE 1 CAP PO BID RIGHT CORNEA (Reported) Multiple Vitamin (Multivitamins) 1 EACH TABLET 1 TAB PO DAILY SUPPLEMENT ( Reported) Polymyxin B Sulf/Trimethoprim (Polymyxin B-Tmp Eye Drops) 10,000 UNIT-1 MG/ML DROPS 1 GTT OPH SYNTHETIC CORNEA (Reported) Prednisolone Acetate 1 % DROPS.SUSP 1 GTT OPH 4 TIMES/DAY RIGHT CORNEA ( Reported) Simvastatin (Simvastatin*) 10 MG TABLET 1 TAB PO QPM HYPERLIPIDEMIA (Reported ) Timolol (Betimol) 0.5 % DROPS 1 GTT OPH BID RIGHT CORNEA (Reported) Review of Systems Review of Systems: decreased vision in right eye Past History Travel History Traveled to [place] past 21 day No Medical History Neurological: Parkinson's disease EENT: R SYNTHETIC CORNEA Cardiovascular: hypertension, hyperlipidemia Respiratory: asthma Psychiatric: anxiety Surgical History Surgical History: tonsillectomy Family History Family History Reviewed? Brother: premature CAD, diabetes, obesity Mother: heart disease Father: heart disease Psychosocial History Where Do You Live? Home Who Do You Live With? spouse Services at Home: None Smoking Status: Never Smoked Functional Ability Ambulation: independent Exam & Diagnostic Data Vital Signs and I&O Vital Signs Date Time Temp Pulse Resp B/P B/P Pulse O2 O2 Flow FiO2 Mean Ox Delivery Rate 01/27 0603 97.7 71 18 125/58 98 Room Air 01/27 0602 97.7 71 18 125/58 98 Room Air 01/27 0340 98.0 70 18 133/60 98 Room Air 01/26 2052 97.9 68 16 174/74 98 Room Air 01/26 1936 98.6 68 18 179/63 99 Room Air 01/26 1729 97.7 76 18 180/85 100 Room Air Intake & Output 01/27 1600 01/27 0800 01/27 0000 01/26 1600 01/26 0800 01/26 0000 Intake Total Output Total Balance Patient 160 lb 135 lb Weight Weight Reported by Patient Reported by Patient Measurement Method Physical Exam: General: WD/WN female in NAD; alert and oriented x 3 HEENT: NC/AT, PERRL, EOMI, right cornea is opaque Neck: no JVD, no carotid bruit Heart: RRR with 2/6 systolic murmur at the RUSB Lungs: clear bilaterally ABdomen: soft, NT, +ve bowel sounds Extremities: No edema Diagnostic Data EKG Results sinus rhythm with LBBB Assessment/Plan Assessment/Plan * This elderly woman has a right intertrochanteric hip fracture and anticipates surgery. She does have some findings that are disconcerting including a murmur of aortic stenosis, newly discovered LBBB, multiple first degree relatives with coronary artery disease, hypertension, dyslipidemia and a chest discomfort that she attributes to heartburn. She does not have any active chest pain or decompensated CHF. The most prudent option is to obtain an echocardiogram to assess her degree of aortic stenosis and to assess her heart for overall EF and regional wall motion abnormalities. At present she is at mildly increased, but not prohibitive risk of about 5% of an untoward cardiac event during surgery. Consult Acknowledgment - Thank you for your consult request.
--- NOTE | 2018-01-27 15:01 | ECHOCARDIOGRAM REPORT ---
ZEV COVARRUBIAS Age: 87 : 1930 Gender: F Exam Date: 01/27/2018 09:06 Exam Location: ER Ht (in): 63 Wt (lb): 160 BSA: 1.82 BP: 125 / 58 Ordering Physician: Jenny Stephens MD Referring Physician: Gil Cruz MD, PhD Technologist: Vianney Hu Room Number: ER-11 Indications: HYPERTENSION Rhythm: Sinus Technical Quality: good FINDINGS Left Ventricle Normal left ventricular size, wall thickness and systolic function with no obvious regional wall motion abnormalities. Diastolic filling pattern is consistent with impaired LV relaxation. The ejection fraction is visually estimated at 60%. Right Ventricle The right ventricle is normal in size and function. Right Atrium The right atrium is normal in size. Left Atrium The left atrium is normal in size. The interatrial septum is intact. Mitral Valve The mitral valve demonstrates moderrate posterior annular calcification with normal function. There is mild mitral regurgitation. Aortic Valve Mildly sclerotic aortic valve with mild to moderate stenosis. There is no aortic regurgitation. Tricuspid Valve The tricuspid valve is normal in structure and function. There is trace tricuspid regurgitation. Pulmonary artery systolic pressure is elevated to 48mmHg. Pulmonic Valve Structurally normal pulmonic valve. There is no pulmonic regurgitation. Pericardium Normal pericardium without effusion. No pleural effusion. Great Vessels Normal aortic root dimension. The aortic arch and great vessels are well seen and are normal. CONCLUSIONS 1. Normal EF of 60% with impaired LV relaxation. 2. Mild mitral regurgitation with moderate annular calcification posteriorly 3. Trace tricuspid regurgitation. 4. Moderate pulmonary hypertension. 5. Mild to moderate aortic stenosis. Gil Cruz M.D. (Electronically Signed) Final Date: 27 January 2018 15:01 MEASUREMENTS (Male / Female) Normal Values 2D ECHO LV Diastolic Diameter PLAX 3.6 cm 4.2 - 5.9 / 3.9 - 5.3 cm LV Systolic Diameter PLAX 2.6 cm 2.1 - 4.0 cm LV Fractional Shortening PLAX 27.8 % 25 - 46 % LV Ejection Fraction 2D Teich 54.8 % IVS Diastolic Thickness 0.7 cm LVPW Diastolic Thickness 0.9 cm LV Relative Wall Thickness 0.4 RV Internal Dim ED PLAX 2.5 cm 1.9 - 3.8 cm LVOT Diameter 1.8 cm LA Systolic Diameter LX 2.4 cm 3.0 - 4.0 / 2.7 - 3.8 cm Ascending Aorta Diameter 2.7 cm DOPPLER AV Peak Velocity 209.0 cm/s AV Peak Gradient 17.5 mmHg AV Mean Velocity 150.0 cm/s AV Mean Gradient 10.0 mmHg AV Velocity Time Integral 42.6 cm LVOT Peak Velocity 108.0 cm/s LVOT Peak Gradient 4.7 mmHg LVOT Mean Velocity 74.9 cm/s LVOT Mean Gradient 3.0 mmHg LVOT Velocity Time Integral 22.3 cm LVOT Stroke Volume 56.7 cm AV Area Cont Eq vti 1.3 cm AV Area Cont Eq pk 1.3 cm MV Peak Velocity 150.0 cm/s MV Peak Gradient 9.0 mmHg MV Mean Velocity 90.3 cm/s MV Mean Gradient 4.0 mmHg Mitral E Point Velocity 84.4 cm/s Mitral A Point Velocity 119.0 cm/s Mitral E to A Ratio 0.7 MV PHT Velocity 115.0 cm/s MV Deceleration [place] 488.5 cm/s MV Pressure Half Time 70.6 ms MV Area PHT 3.1 cm MV Deceleration Time 239.0 ms TR Peak Velocity 308.0 cm/s TR Peak Gradient 37.9 mmHg Right Atrial Pressure 10.0 mmHg Pulmonary Artery Systolic Pressu 47.9 mmHg Right Ventricular Systolic Press 47.9 mmHg PV Peak Velocity 131.0 cm/s PV Peak Gradient 6.9 mmHg PV Mean Velocity 95.7 cm/s PV Mean Gradient 4.0 mmHg PV Velocity Time Integral 28.2 cm LV E' Lateral Velocity 5.6 cm/s Mitral E to LV E' Lateral Ratio 15.1 LV E' Septal Velocity 4.9 cm/s Mitral E to LV E' Septal Ratio 17.2
[2018-01-27 22:45] VITALS: BP 137/57
[2018-01-28 05:55] VITALS: BP 148/80
--- NOTE | 2018-01-28 07:59 | PN- Housestaff ---
Lyndsey Chappell MD,Maycol 01/28/18 0759: Subjective Follow-up For: Right Hip fracture status post mechanical fall Complaints: mild pain, right hip Subjective: Patient was comfortably lying in the bed. Yesterday she had some pain in her right hip. She is planned to go for surgery today around 1 PM. No acute episode of chest pain, shortness of breath, nausea vomiting or altered mental status Review of Systems Constitutional: Denies: chills, fever. EENTM: Denies: visual changes. Cardiovascular: Denies: chest pain. Respiratory: Denies: short of breath. Gastrointestinal: Denies: abdominal pain, nausea. Musculoskeletal: Reports: joint pain (Right), muscle pain (Right). Objective Last 24 Hrs of Vital Signs/I&O Vital Signs Date Time Temp Pulse Resp B/P B/P Pulse O2 O2 Flow FiO2 Mean Ox Delivery Rate 01/28 0555 98.4 78 20 148/80 94 Room Air 01/27 2245 98.0 70 20 137/57 96 Room Air 01/27 1340 Room Air 01/27 1016 97.7 71 18 125/58 Intake & Output 01/28 1600 01/28 0800 01/28 0000 Intake Total 400 200 Output Total 200 300 Balance 200 -100 Intake, IV 400 200 Output, Urine 200 300 Physical Exam General Appearance: Alert, Oriented X3, Cooperative, No Acute Distress Skin: No Rashes HEENT: Atraumatic Cardiovascular: Regular Rate, Normal S1, Normal S2, SYSTOLIC MURMUR Lungs: Clear to Auscultation, Normal Air Movement Abdomen: Normal Bowel Sounds, Soft, No Tenderness Neurological: Normal Speech, Normal Tone, Sensation Intact Lines/Diet/Fluids Fluids/Infusions: D5-NS @ 50ML Lines: peripheral lines Restraints: none Assessment/Plan Assessment: 87-year-old woman with past medical history significant for Hypothyroidism, parkinson's disease, HTN, HLD, anxiety, depression, and right eye blindness post cataract procedure who presented to the ED after mechanical fall. She denies palpitation, chest pain, LOC, or dizziness prior to the fall. She denies head trauma, or seizure activity during the fall. She denies confusion, weakness, or numbness post the fall. Immediately after the fall she had severe right thigh pain and she wasn't able to bear weight on her right leg. At baseline she ambulates independently, at average she walks around 2 blocks daily and use bicycle intermittently at home. She can go flight of stairs without complaints. On admission she was found to have LBBB of unknown duration. She has no cardiovascular history except hypertension and never had any cardiac workup. Patient is currently being managed for Right intertrochanteric femur fracture Met's score >4. Cardiology estimated risk of cardiac event as 5%. pt agrees to the risk. Recent echocardiogram showed ejection fraction of 60% with impaired LV relaxation, mild mitral regurg, moderate hypertension and mild aortic stenosis. Patient is currently on D5 normal saline at the rate of 50 mL per hour Pain control as needed with Tylenol We are holding aspirin until her surgery that will be around 1 PM today and after surgery we discuss about resuming aspirin. Acute anemia Patient has a drop of H&H. Baseline 12.2/37.2. Yesterday's hemoglobin 10.1/ 30.5. Patient is asymptomatic. Does not complain of any bright red blood per rectum. No hematoma palpable on physical examination. We will check stool guaiac and follow-up CBC. This is likely secondary to dilutional anemia because of IV fluids. If there is a significant drop in H&H we will hold off on subcutaneous heparin. Chronic medical conditions Continue her home medications for Sinemet, SSRI, Synthroid, losartan and her eyedrops. DVT prophylaxis DVT prophylaxis post surgery as per orthopedic recommendation, currently on subcutaneous heparin Full code Patient is currently nothing by mouth Problem List: 1. Intertrochanteric fracture of right femur Pain Ratin Pain Location: Right hip pain Pain Goal: Pain 4 or less Pain Plan: Continue current pain medications Tomorrow's Labs & Rationales: CBC follow-up for anemia DVT/Prophylaxis: pharmacological Carlie Winn MD 01/28/18 1132: Attending MD Review Statement Attending Statement Attending MD Statement: examined this patient, discuss w/resident/PA/MANAGER PERFORMANCE [employer]OVEMENT, agreed w/resident/PA/MANAGER PERFORMANCE [employer]OVEMENT, discussed with family, reviewed EMR data (avail), discussed with nursing, discussed with case mgmt, reviewed images, amended to note Attending Assessment/Plan: Patient seen and examined, awaiting for surgery. She still complaining of pain in her right lower extremity. Vital Signs Date Time Temp Pulse Resp B/P B/P Pulse O2 O2 Flow FiO2 Mean Ox Delivery Rate 01/28 0555 98.4 78 20 148/80 94 Room Air 03/27 2245 98.0 70 20 137/57 96 Room Air 01/27 1340 Room Air on exam; aox3, nad. cv; s1, s2, rrr resp; clear abd; soft, nt, bs+ ext; no edema Laboratory Tests 01/28 1113 Hematology CBC w Diff Pending WBC Pending RBC Pending Hgb Pending Hct Pending MCV Pending MCH Pending MCHC Pending RDW Pending Plt Count Pending MPV Pending A/P; 87 y/o F with pmh sig for HTN, HLD, Parkinson's disease, right sympathetic cornea, hypothyroidism and anxiety admitted with a mechanical fall and sustained a right intertrochanteric femur fracture. Patient is awaiting surgery. Has been seen by cardiology and also reviewed the results of echo. She has some diastolic dysfunction. No further testing needed before the surgery and no contraindications to surgery. Patient currently on morphine and Tylenol for pain management. Continue the rest of the Mx. DVT px: Hep sq. Will need PT post op.
[2018-01-28 11:54] LABS: ABSOLUTE BASOPHIL COUNT 0 /CUMM (0.0-0.2); ABSOLUTE EOSINOPHIL COUNT 0.2 /CUMM (0.0-0.7); ABSOLUTE GRANULOCYTE CT 7.4 /CUMM (1.4-6.5); ABSOLUTE LYMPH COUNT 1.4 /CUMM (1.2-3.4); ABSOLUTE MONOCYTE COUNT 1.2 /CUMM (0.10-0.60); BASOPHIL % 0.5 % (0.0-2.0); EOSINOPHIL % 1.7 % (0-5); GRANULOCYTE % 72.9 % (42.2-75.2); HEMATOCRIT 31.7 % (37-47); MEAN CORPUSCULAR HGB 31.5 PG (27.0-31.0); MEAN CORPUSCULAR HGB CONC 33.4 G/DL (33.0-37.0); MEAN CORPUSCULAR VOLUME 94.3 FL (81.0-99.0); MEAN PLATELET VOLUME 7.3 FL (7.4-10.4); PLATELET COUNT 178 /CUMM (130-400); RBC DISTRIBUTION WIDTH 13.8 % (11.5-14.5); RED BLOOD CELL CT 3.36 /CUMM (4.20-5.40); WHITE BLOOD CELL COUNT 10.2 /CUMM (4.8-10.8)
[2018-01-28 14:28] VITALS: BP 160/76
--- NOTE | 2018-01-28 15:04 | Patient Discharge Instructions ---
Discharge Instructions General Discharge Information You were seen/treated for: Right Hip fracture status post mechanical fall Special Instructions: Follow-up with Orthopedics after discharge Follow-up with primary care after discharge Follow up CBC after discharge Diet Continue normal diet: Yes Activity Full Activity/No Limits: No Activity Self Limited: Yes Additional ACTIVITY Info: As tolerated Acute Coronary Syndrome Inclusion Criteria At DC or during hospital stay patient has or had the following: ACS DIAGNOSIS No Discharge Core Measures Meds if any: Prescribed or Continued at Discharge Meds if any: NOT Prescribed or Continued at Discharge Congestive Heart Failure Inclusion Criteria At DC or during hospital stay patient has or had the following: CHF DIAGNOSIS No Discharge Core Measures Meds if any: Prescribed or Continued at Discharge Meds if any: NOT Prescribed or Continued at Discharge Cerebrovascular accident Inclusion Criteria At DC or during hospital stay patient has or had the following: CVA/TIA Diagnosis No Discharge Core Measures Meds if any: Prescribed or Continued at Discharge Meds if any: NOT Prescribed or Continued at Discharge Venous thromboembolism Inclusion Criteria VTE Diagnosis No VTE Type NONE VTE Confirmed by (Test) NONE Discharge Core Measures - Per Current guidelines, there needs to be overlap - treatment for the first 5 days of Warfarin therapy. - If discharged on Warfarin prior to 5 days of - overlap therapy, the patient will need to be - assessed for post discharge needs including - *Post discharge parental anticoagulation - *Warfarin and/or parental anticoagulation education - *Follow up date to check INR post discharge At least 5 days overlap therapy as Inpatient No Meds if any: Prescribed or Continued at Discharge Note: Overlap Therapy is Warfarin and Anticoagulant Meds if any: NOT Prescribed or Continued at Discharge
--- NOTE | 2018-01-28 15:19 | Discharge Summary ---
Visit Information Visit Dates Admission Date: 01/26/18 Discharge Date: 01/31/18 Hospital Course Course Attending Physician: Carlie Winn MD Primary Care Physician: Kathie Selby MD Consulting Request: Consulting Specialty: Orthopedics Hospital Course: 87-year-old woman with past medical history significant for Hypothyroidism, parkinson's disease, HTN, HLD, anxiety, depression, and right eye blindness post cataract procedure who presented to the ED after mechanical fall. She denies palpitation, chest pain, LOC, or dizziness prior to the fall. She denies head trauma, or seizure activity during the fall. She denied confusion, weakness, or numbness post fall. Immediately after the fall she had severe right thigh pain and she wasn't able to bear weight on her right leg. At baseline she ambulates independently, at average she walks around 2 blocks daily and use bicycle intermittently at home. She can go flight of stairs without complaints. On admission she was found to have LBBB of unknown duration. She has no cardiovascular history except hypertension and never had any cardiac workup. Patient was managed on general medicine floor for following issues Right intertrochanteric femur fracture Patient underwent surgery for right intertrochanteric femur fracture after medical and cardiac optimization. Patient needed this evaluation because she had a murmur for aortic stenosis and newly discovered left bundle branch block of unknown duration and multiple first-degree relatives with coronary artery disease hyperlipidemia and hypertension. Given all these risk factors and echocardiogram was obtained which showed, ejection fraction of 60% with no regional wall motion abnormalities. Mildly sclerotic aortic valve with mild to moderate stenosis. Pulmonary artery systolic pressure was elevated to 48mmHg. Met's score was >4. Cardiology estimated risk of cardiac event as 5%. pt agreeed to the risk.Pain control was achieved with with Tylenol. We held aspirin until her surgery and postoperatively was resumed. Acute anemia Patient had a drop of H&H. Baseline 12.2/37.2. Hemoglobin 10.1/30.5 on 01/28/18. Patient was asymptomatic. Did not complain of any bright red blood per rectum. No hematoma palpable on physical examination. We checked stool guaiac, which was neagtive and follow-up CBC was done. She did not recieve any transfusion. There was likely a dilutional component because of IV fluids. At this point her hemoglobin is stable in the 7.8-8.4 range. She has slowly drifted down from a hemoglobin of 12 on January 26 to 10 to the eights. Given that she is going to be on Eliquis and on aspirin a close watch needs to be kept in the hemoglobin and I would repeat her CBC in about 2 days on February 02 to make sure the hemoglobin is staying stable. Chronic medical conditions Continue her her home medications including Sinemet, SSRI, Synthroid, losartan and her eyedrops. DVT prophylaxis Patient was on subcutaneous heparin during hospitalization for DVT prophylaxis. Postprocedure patient will be on Eliquis for 4 weeks as per surgery recommendations. Full code Patient was full code during hospitalization Allergies: Coded Allergies: No Known Allergies (01/26/18) Significant Procedures: Surgery for right hip intertrochanteric femur fracture Disposition Summary Disposition Principal Diagnosis: Right Hip fracture status post mechanical fall Dehydration with episode of hypotension, acute blood loss anemia Additional Diagnosis: History of dementia History of hypothyroidism History of blood pressure Discharge Disposition: SNF Discharge Instructions General Discharge Information Code Status: Full Code Patient's Diet: Heart healthy diet Patient's Activity: OOB as tolerated with PT. Follow-Up Instructions/Appts: Follow-up with Orthopedics after discharge Follow-up with primary care after discharge Check CBC on 02/02/18. Note discharging hemoglobin is in the 7.8-8.4 range and follow-up to make sure stable. Ensure cardiology follow-up given mild to moderate aortic stenosis and moderate pulmonary hypertension. Medications at Discharge Discharge Medications: Continue taking these medications: Polymyxin B Sulf/Trimethoprim (Polymyxin B-Tmp Eye Drops) 10,000 UNIT-1 MG/ML DROPS 1 Drop In the eye Qty = 10 Simvastatin (Simvastatin*) 10 MG TABLET 1 Tablet ORAL Every night Levothyroxine Sodium (Levothyroxine Sodium) 50 MCG TABLET 1 Tablet ORAL DAILY Qty = 90 Carbidopa/Levodopa (Carbidopa-Levodopa 25-100 Tab) 25 MG-100 MG TABLET 1 Tablet ORAL 4 TIMES A DAY Losartan (Cozaar) 100 MG TABLET 1 Tablet ORAL DAILY Aspirin (Ecotrin*) 81 MG TABLET.DR 1 Tablet ORAL DAILY Escitalopram Oxalate (Escitalopram Oxalate) 5 MG TABLET 1 Tablet ORAL DAILY Qty = 85 Minocycline HCl (Minocycline HCl) 50 MG CAPSULE 1 Capsule ORAL TWICE DAILY Prednisolone Acetate (Prednisolone Acetate) 1 % DROPS.SUSP 1 Drop In the eye 4 TIMES A DAY Qty = 15 Timolol (Betimol) 0.5 % DROPS 1 Drop In the eye TWICE DAILY Dorzolamide HCl (Dorzolamide HCl) 2 % DROPS 1 Drop In the eye TWICE DAILY Cranberry Extract (Cranberry) 200 MG CAPSULE 1 Capsule ORAL DAILY Cholecalciferol (Vitamin D3) (Vitamin D) 400 UNIT CAPSULE 1 Capsule ORAL DAILY Multiple Vitamin (Multivitamins) 1 EACH TABLET 1 Tablet ORAL DAILY Start taking the following new medications: Apixaban (Eliquis) 2.5 MG TABLET 2.5 Milligram ORAL TWICE DAILY Qty = 56 No Refills Polyethylene Glycol 3350 (Miralax) 17 GRAM/DOSE POWDER 17 Gram ORAL DAILY Qty = 30 No Refills Sennosides/Docusate Sodium (Senna Plus Tablet) 8.6 MG-50 MG TABLET 1 Tablet ORAL TWICE DAILY as needed for CONSTIPATION Qty = 30 No Refills Acetaminophen (Tylenol) 325 MG TABLET 650 Milligram ORAL EVERY SIX HOURS NEEDED as needed for PAIN SCALE 7-10 ( SEVERE) Qty = 60 No Refills Copies To: Bal DOSHI,Kathie; Nancy DOSHI PHD,Gil Mireles
--- NOTE | 2018-01-28 16:27 | Operative Report ---
Operative/Inv Procedure Report Surgery Date: 01/28/18 Name of Procedure: Intramedullary rodding right femur Pre-Operative Diagnosis: Right intertrochanteric hip fracture Post-Operative Diagnosis: Right intertrochanteric hip fracture Estimated Blood Loss: less than 50ml Surgeon/Oral Surgery Assistant: olu hdz Anesthesia: spinal anesthetic Operative/Procedure Note Note: Patient 87-year-old female brought to the operating room and given a spinal anesthetic in the operating room. She was then gently transferred to the fracture table placed in longitudinal traction on the right side with the left leg up in the chanell-lithotomy position. She did receive 2 g Kefzol antibiotics. The right hip and upper leg were prepped and draped in usual sterile fashion. An incision was made and a guidewire placed into the proximal femur and the center of the greater trochanter. We did verify prior to placing the guidepin that the it was an anatomic reduction with AP and lateral fluoroscopic pictures. After the guidepin was placed into the initial proximal reaming cynthia was then placed. Guidewire then placed up into the femoral head and neck along the calcar area. Appropriate measurements were taken for size of lag screw. The reamer was set and reaming was carried out up into the femoral head and neck. After completing this we backed off by an extra 5 mm for some compression we went ahead and compressed the fracture with 105 mm lag screw. Distal locking screw was placed with the appropriate cannulas after making a small incision and spreading down the bone. Final x-ray showed an anatomic reduction of her right femur both at the femoral intratrochanteric fracture area and along the cynthia locked distally. Thorough irrigation was carried out the wounds were closed in a layered fashion dry sterile dressings applied and she was sent to recovery room in stable condition all complications and a dictation by Dr. Hdz thank you
--- NOTE | 2018-01-28 23:30 | PN- Orthopedic ---
Subjective Subjective: poc s/p orif right hip fracture aswake alert responsive denies cp, sob, no n+v Objective Vital Signs and I&Os Vital Signs Date Time Temp Pulse Resp B/P B/P Pulse O2 O2 Flow FiO2 Mean Ox Delivery Rate 01/28 1428 98.6 65 20 160/76 94 Room Air 01/28 1226 Room Air 01/28 0555 98.4 78 20 148/80 94 Room Air Intake & Output 01/28 1600 01/28 0800 01/28 0000 01/27 1600 01/27 0800 01/27 0000 Intake Total 600 400 200 550 Output Total 200 300 Balance 600 200 -100 550 Intake, IV 600 400 200 250 Intake, Oral 300 Output, Urine 200 300 Patient 160 lb 135 lb Weight Weight Reported by Patient Reported by Patient Measurement Method Physical Exam: cv: rrr lungs: clear abd: soft, +bs ext: drsg dry thigh soft, distal cms intact dewitt: clear urine Assessment/Plan Assessment/Plan ortho stable plan oob with pt in am wbat right le ancef x2 doses titrate pain meds dvt prophylaxis per medicine will need str upon d/c Core Measures Venous Thromboembolism VTE Risk Factors Age>40 No Mechanical VTE Prophylaxis d/t N/A MechProphylax Ordered No VTE Pharm Prophylaxis d/t NA PharmProphylax ordered
--- NOTE | 2018-01-28 23:38 | RADIOLOGY REPORT ---
EXAMINATION: XR HIP, RIGHT CLINICAL INFORMATION: Pain COMPARISON: None TECHNIQUE: Two views of the right hip. FINDINGS: Acute intertrochanteric fracture of the right hip with mild varus deformity and mild displacement of the lesser trochanter. Pubic bone and acetabulum appear grossly intact. No dislocation. No definite underlying focal lesion. IMPRESSION: Acute intertrochanteric fracture of the right hip.
[2018-01-28 23:40] VITALS: BP 107/54
[2018-01-29 07:04] VITALS: BP 112/51
--- NOTE | 2018-01-29 07:29 | PN- Housestaff ---
Lyndsey Chappell MD,[facility] 01/29/18 0729: Subjective Follow-up For: Right Hip fracture status post mechanical fall Status post open reduction and internal fixation of right hip Complaints: mild pain of right hip on movement Subjective: Intra-operative course was uneventful. Patient remained afebrile overnight. No tachypnea or tachycardia. We will taper her oxygen as she saturated 100% on 2 L. Review of Systems Constitutional: Denies: chills, fever. Cardiovascular: Denies: chest pain. Respiratory: Denies: cough, short of breath. Gastrointestinal: Denies: abdominal pain, nausea, vomiting. Genitourinary: Denies: dysuria. Objective Last 24 Hrs of Vital Signs/I&O Vital Signs Date Time Temp Pulse Resp B/P B/P Pulse O2 O2 Flow FiO2 Mean Ox Delivery Rate 01/29 0820 72 112/51 01/29 0704 97.7 72 20 112/51 100 Nasal 2.0L Cannula 01/29 0000 98 Nasal 2.0L Cannula 01/28 2340 98.3 80 20 107/54 98 Nasal 2.0L Cannula 01/28 1428 98.6 65 20 160/76 94 Room Air 01/28 1226 Room Air Intake & Output 01/29 1600 01/29 0800 01/29 0000 Intake Total 460 Output Total 100 100 Balance 360 -100 Intake, IV 400 Intake, Oral 60 Output, Urine 100 100 Physical Exam General Appearance: Alert, Oriented X3, Cooperative, Mild Distress HEENT: PERRLA Neck: No JVD Cardiovascular: Regular Rate, Normal S1, Normal S2, systolic murmur Lungs: Clear to Auscultation, Normal Air Movement Abdomen: Normal Bowel Sounds, Soft, No Tenderness Neurological: Normal Speech, Normal Tone, Sensation Intact Extremities: No Edema, right leg covered with surgical dressing, no obvious swelling or hematoma palpated, non erythematous Vascular: Normal Pulses Current Medications: Current Medications Sig/Bozena Start time Last Medication Dose Route Stop Time Status Admin Acetaminophen 1,000 MG .STK-MED ONE 01/28 2126 DC IV 01/28 2127 Acetaminophen 1,000 MG .STK-MED ONE 01/28 1420 DC IV 01/28 1421 Acetaminophen 650 MG Q6P PRN 01/27 2000 AC PO Acetaminophen 1,000 MG Q8P PRN 01/27 2000 AC 01/28 IV 212 Atorvastatin Calcium 10 MG 1700 01/27 1700 AC 01/28 PO 1920 Carbidopa/Levodopa 1 TAB 4 TIMES/DAY 01/27 1000 AC 01/29 PO 0816 Cefazolin Sodium 2 GM IQ8 01/29 0000 DC 01/29 N/A 1 UNIT IV 01/29 0829 0038 Dextrose/Sodium 1,000 ML Q20H 01/27 0145 AC 01/28 Chloride IV 1800 Dorzolamide HCl 1 GTT BID 01/27 1026 AC 01/29 OPH 0822 Escitalopram Oxalate 5 MG DAILY 01/27 1000 AC 01/29 PO 0815 Fentanyl Citrate 100 MCG .STK-MED ONE 01/28 1419 DC IM 01/28 1420 Heparin Sodium 5,000 UNIT Q8 01/26 2200 AC 01/29 (Porcine) SC 0532 Ketamine HCl 50 MG .STK-MED ONE 01/28 1420 DC IM 01/28 1421 Levothyroxine Sodium 0.05 MG DAILY 01/27 1000 AC 01/29 PO 0816 Losartan Potassium 100 MG DAILY 01/27 1000 AC 01/29 PO 0820 Midazolam HCl 2 MG .STK-MED ONE 01/28 1420 DC IM 01/28 1421 Minocycline HCl 50 MG BID 01/27 1029 AC 01/29 PO 0820 Morphine Sulfate 10 MG .STK-MED ONE 01/28 1419 DC IV 01/28 1420 Morphine Sulfate 2 MG Q4P PRN 01/26 2000 AC 01/28 IV 1917 Patient Medication 1 ED ONE ONE 01/28 1100 DC 01/28 Teaching ED 01/28 1101 1358 Polymyxin/ 1 GTT DAILY 01/27 1026 AC 01/29 Trimethoprim Sulfate OPH 0822 Prednisolone 1 GTT 4 TIMES/DAY 01/27 1026 AC 01/29 OPH 0821 Timolol Maleate 1 GTT BID 01/26 2200 AC 01/29 OPH 0821 Last 24 Hrs of Lab/Samm Results Last 24 Hrs of Labs/Mics: Laboratory Tests 01/29/18 0633: Anion Gap 7, Estimated GFR 59 L, BUN/Creatinine Ratio 15.6, CBC w Diff NO MAN DIFF REQ, RBC 2.88 L, MCV 94.4, MCH 30.9, MCHC 32.8 L, RDW 13.6, MPV 8.3, Gran % 67.9, Lymphocytes % 16.6 L, Monocytes % 13.4 H, Eosinophils % 2.0, Basophils % 0.1, Absolute Granulocytes 7.8 H, Absolute Lymphocytes 1.9, Absolute Monocytes 1.5 H, Absolute Eosinophils 0.2, Absolute Basophils 0 01/28/18 1113: CBC w Diff NO MAN DIFF REQ, RBC 3.36 L, MCV 94.3, MCH 31.5 H, MCHC 33.4, RDW 13.8, MPV 7.3 L, Gran % 72.9, Lymphocytes % 13.5 L, Monocytes % 11.4 H, Eosinophils % 1.7, Basophils % 0.5, Absolute Granulocytes 7.4 H, Absolute Lymphocytes 1.4, Absolute Monocytes 1.2 H, Absolute Eosinophils 0.2, Absolute Basophils 0 Lines/Diet/Fluids Fluids/Infusions: none Lines: peripheral lines Restraints: none Assessment/Plan Assessment: 87-year-old woman with past medical history significant for Hypothyroidism, parkinson's disease, HTN, HLD, anxiety, depression, and right eye blindness post cataract procedure who presented to the ED after mechanical fall. She denies palpitation, chest pain, LOC, or dizziness prior to the fall. She denies head trauma, or seizure activity during the fall. She denies confusion, weakness, or numbness post the fall. Immediately after the fall she had severe right thigh pain and she wasn't able to bear weight on her right leg. At baseline she ambulates independently, at average she walks around 2 blocks daily and use bicycle intermittently at home. She can go flight of stairs without complaints. On admission she was found to have LBBB of unknown duration. She has no cardiovascular history except hypertension and never had any cardiac workup. Patient is currently being managed for Right intertrochanteric femur fracture s/p Right Hip ORIF Met's score >4. Cardiology estimated risk of cardiac event as 5%. pt agreed to the risk. Recent echocardiogram showed ejection fraction of 60% with impaired LV relaxation, mild mitral regurg, moderate hypertension and mild aortic stenosis. We held ASA before surgery Patient underwent right ORIF yesterday without any intraoperative complications under spinal anesthesia and less than 50 mL blood loss As per orthopedic recommendations, weightbearing as tolerated right lower extremity with PT Pain control as needed with Tylenol Postoperatively, around noon after IV fluids were discontinued patient had noted to have low blood pressure. Systolic blood pressure in 80s and diastolic in 60s. Patient was given a bolus of normal saline 500 mL and was started on baseline fluids and her blood pressure improved. We will pursue further workup with CAT scan if continued to be hypotensive along with drop in H&H. Acute anemia-Dilutional Patient has a drop of H&H. Baseline 12.2/37.2. Hemoglobin 2 days ago, 10.1/30.5 and today 8.9/27.2. Patient is asymptomatic. Does not complain of any bright red blood per rectum. No hematoma palpable on physical examination. We will check stool guaiac. This is likely secondary to dilutional anemia because of IV fluids. We dc IV fluids and will follow up h/h. Chronic medical conditions Continue her home medications for Sinemet, SSRI, Synthroid, losartan and her eyedrops. DVT prophylaxis DVT prophylaxis post surgery as per orthopedic recommendation, currently on subcutaneous heparin Full code Problem List: 1. Intertrochanteric fracture of right femur Pain Ratin Pain Location: Right Thigh Pain Goal: Pain 4 or less Pain Plan: Continue current pain medications Tomorrow's Labs & Rationales: Follow-up hemoglobin, check CBC DVT/Prophylaxis: pharmacological Consulting Request: Consulting Specialty: Orthopedics Carlie Winn MD 01/29/18 1139: Attending MD Review Statement Attending Statement Attending MD Statement: examined this patient, discuss w/resident/PA/SANDBLAST OR SHOTBLAST EQUIPMENT TENDER, agreed w/resident/PA/SANDBLAST OR SHOTBLAST EQUIPMENT TENDER, discussed with family, reviewed EMR data (avail), discussed with nursing, discussed with case mgmt, reviewed images, amended to note Attending Assessment/Plan: Patient seen and examined this morning. She was doing well. Her pain was well- controlled. She only wanted to take Tylenol for pain management. No acute events overnight. Vital Signs Date Time Temp Pulse Resp B/P B/P Pulse O2 O2 Flow FiO2 Mean Ox Delivery Rate 01/29 0820 72 112/51 01/29 0704 97.7 72 20 112/51 100 Nasal 2.0L Cannula 01/29 0000 98 Nasal 2.0L Cannula 01/28 2340 98.3 80 20 107/54 98 Nasal 2.0L Cannula 01/28 1428 98.6 65 20 160/76 94 Room Air 01/28 1226 Room Air on exam; aox3, nad. cv; s1,s2, rrr resp; clear abd; soft, nt, bs+ ext; no edema + pressure dressing on right hip. Laboratory Tests 01/29 0633 Chemistry Sodium (137 - 145 mmol/L) 138 Potassium (3.5 - 5.1 mmol/L) 3.8 Chloride (98 - 107 mmol/L) 103 Carbon Dioxide (22 - 30 mmol/L) 28 Anion Gap (5 - 16) 7 BUN (7 - 17 mg/dL) 14 Creatinine (0.5 - 1.0 mg/dL) 0.9 Estimated GFR (>60 ml/min) 59 L BUN/Creatinine Ratio (7 - 25 %) 15.6 Hematology CBC w Diff NO MAN DIFF REQ WBC (4.8 - 10.8 /CUMM) 11.5 H RBC (4.20 - 5.40 /CUMM) 2.88 L Hgb (12.0 - 16.0 G/DL) 8.9 L Hct (37 - 47 %) 27.2 L MCV (81.0 - 99.0 FL) 94.4 MCH (27.0 - 31.0 PG) 30.9 MCHC (33.0 - 37.0 G/DL) 32.8 L RDW (11.5 - 14.5 %) 13.6 Plt Count (130 - 400 /CUMM) 170 MPV (7.4 - 10.4 FL) 8.3 Gran % (42.2 - 75.2 %) 67.9 Lymphocytes % (20.5 - 51.1 %) 16.6 L Monocytes % (1.7 - 9.3 %) 13.4 H Eosinophils % (0 - 5 %) 2.0 Basophils % (0.0 - 2.0 %) 0.1 Absolute Granulocytes (1.4 - 6.5 /CUMM) 7.8 H Absolute Lymphocytes (1.2 - 3.4 /CUMM) 1.9 Absolute Monocytes (0.10 - 0.60 /CUMM) 1.5 H Absolute Eosinophils (0.0 - 0.7 /CUMM) 0.2 Absolute Basophils (0.0 - 0.2 /CUMM) 0 A/P; 87 y/o F with pmh sig for HTN, HLD, Parkinson's disease, right sympathetic cornea, hypothyroidism and anxiety admitted with a mechanical fall and sustained a right intertrochanteric femur fracture. Status post Intramedullary rodding right femur postop day #1 today. Continue current pain management. Postop care per orthopedic. Patient worked with physical therapy. Patient to use incentive Spiriva meter. Continue the rest of the management. Orthopedics recommends anticoagulation with Elqiuis or Lovenox. Will start adequate today and will monitor. Please discontinue heparin subcutaneous after starting Eliquis. D/W family at bedside.
[2018-01-29 08:34] LABS: ABSOLUTE BASOPHIL COUNT 0 /CUMM (0.0-0.2); ABSOLUTE EOSINOPHIL COUNT 0.2 /CUMM (0.0-0.7); ABSOLUTE GRANULOCYTE CT 7.8 /CUMM (1.4-6.5); ABSOLUTE LYMPH COUNT 1.9 /CUMM (1.2-3.4); ABSOLUTE MONOCYTE COUNT 1.5 /CUMM (0.10-0.60); BASOPHIL % 0.1 % (0.0-2.0); GRANULOCYTE % 67.9 % (42.2-75.2); HEMATOCRIT 27.2 % (37-47); MEAN CORPUSCULAR HGB 30.9 PG (27.0-31.0); MEAN CORPUSCULAR HGB CONC 32.8 G/DL (33.0-37.0); MEAN CORPUSCULAR VOLUME 94.4 FL (81.0-99.0); MEAN PLATELET VOLUME 8.3 FL (7.4-10.4); PLATELET COUNT 170 /CUMM (130-400); RBC DISTRIBUTION WIDTH 13.6 % (11.5-14.5); RED BLOOD CELL CT 2.88 /CUMM (4.20-5.40); WHITE BLOOD CELL COUNT 11.5 /CUMM (4.8-10.8)
--- NOTE | 2018-01-29 09:47 | PN- Orthopedic ---
Subjective Subjective: Patient reports slight numbness in her right leg/foot. She states her pain is well controlled. She states she is tolerating a diet without any nausea or vomiting. She reports passing flatus and has a sensation to move her bowels. She denies ambulating with PT yet Objective Vital Signs and I&Os Vital Signs Date Time Temp Pulse Resp B/P B/P Pulse O2 O2 Flow FiO2 Mean Ox Delivery Rate 01/29 0820 72 112/51 01/29 0704 97.7 72 20 112/51 100 Nasal 2.0L Cannula 01/29 0000 98 Nasal 2.0L Cannula 01/28 2340 98.3 80 20 107/54 98 Nasal 2.0L Cannula 01/28 1428 98.6 65 20 160/76 94 Room Air 01/28 1226 Room Air Intake & Output 01/29 1600 01/29 0800 01/29 0000 01/28 1600 01/28 0800 01/28 0000 Intake Total 460 600 400 200 Output Total 100 100 200 300 Balance 360 -100 600 200 -100 Intake, IV 400 600 400 200 Intake, Oral 60 Output, Urine 100 100 200 300 Physical Exam: Gen - nad, eating breakfast accompained by her Ext - Right hip dressing c/d/i, compartment soft, moves all extremities, sensory /motor decreased, alps in place, no edema or calf tenderness Dewitt - concentrated urine noted Current Medications: Current Medications Sig/Bozena Start time Last Medication Dose Route Stop Time Status Admin Acetaminophen 1,000 MG .STK-MED ONE 01/28 2126 DC IV 01/28 212 Acetaminophen 1,000 MG .STK-MED ONE 01/28 1420 DC IV 01/28 1421 Acetaminophen 650 MG Q6P PRN 01/27 2000 AC PO Acetaminophen 1,000 MG Q8P PRN 01/27 2000 AC 01/28 IV 2127 Atorvastatin Calcium 10 MG 1700 01/27 1700 AC 01/28 PO 1920 Carbidopa/Levodopa 1 TAB 4 TIMES/DAY 01/27 1000 AC 01/29 PO 0816 Cefazolin Sodium 2 GM IQ8 01/29 0000 DC 01/29 N/A 1 UNIT IV 01/29 0829 0910 Dextrose/Sodium 1,000 ML Q20H 01/27 0145 DC 01/28 Chloride IV 1800 Dorzolamide HCl 1 GTT BID 01/27 1026 AC 01/29 OPH 0822 Escitalopram Oxalate 5 MG DAILY 01/27 1000 AC 01/29 PO 0815 Fentanyl Citrate 100 MCG .STK-MED ONE 01/28 1419 DC IM 01/28 1420 Heparin Sodium 5,000 UNIT Q8 01/26 2200 AC 01/29 (Porcine) SC 0532 Ketamine HCl 50 MG .STK-MED ONE 01/28 1420 DC IM 01/28 1421 Levothyroxine Sodium 0.05 MG DAILY 01/27 1000 AC 01/29 PO 0816 Losartan Potassium 100 MG DAILY 01/27 1000 AC 01/29 PO 0820 Midazolam HCl 2 MG .STK-MED ONE 01/28 1420 DC IM 01/28 1421 Minocycline HCl 50 MG BID 01/27 1029 AC 01/29 PO 0820 Morphine Sulfate 10 MG .STK-MED ONE 01/28 1419 DC IV 01/28 1420 Morphine Sulfate 2 MG Q4P PRN 01/26 2000 AC 01/28 IV 1917 Patient Medication 1 ED ONE ONE 01/28 1100 DC 01/28 Teaching ED 01/28 1101 1358 Polymyxin/ 1 GTT DAILY 01/27 1026 AC 01/29 Trimethoprim Sulfate OPH 0822 Prednisolone 1 GTT 4 TIMES/DAY 01/27 1026 AC 01/29 OPH 0821 Timolol Maleate 1 GTT BID 01/26 2200 AC 01/29 OPH 0821 Results Last 48 Hours of Labs: Laboratory Tests 01/29 01/28 0633 1113 Chemistry Sodium (137 - 145 mmol/L) 138 Potassium (3.5 - 5.1 mmol/L) 3.8 Chloride (98 - 107 mmol/L) 103 Carbon Dioxide (22 - 30 mmol/L) 28 Anion Gap (5 - 16) 7 BUN (7 - 17 mg/dL) 14 Creatinine (0.5 - 1.0 mg/dL) 0.9 Estimated GFR (>60 ml/min) 59 L BUN/Creatinine Ratio (7 - 25 %) 15.6 Hematology CBC w Diff NO MAN DIFF REQ NO MAN DIFF REQ WBC (4.8 - 10.8 /CUMM) 11.5 H 10.2 RBC (4.20 - 5.40 /CUMM) 2.88 L 3.36 L Hgb (12.0 - 16.0 G/DL) 8.9 L 10.6 L Hct (37 - 47 %) 27.2 L 31.7 L MCV (81.0 - 99.0 FL) 94.4 94.3 MCH (27.0 - 31.0 PG) 30.9 31.5 H MCHC (33.0 - 37.0 G/DL) 32.8 L 33.4 RDW (11.5 - 14.5 %) 13.6 13.8 Plt Count (130 - 400 /CUMM) 170 178 MPV (7.4 - 10.4 FL) 8.3 7.3 L Gran % (42.2 - 75.2 %) 67.9 72.9 Lymphocytes % (20.5 - 51.1 %) 16.6 L 13.5 L Monocytes % (1.7 - 9.3 %) 13.4 H 11.4 H Eosinophils % (0 - 5 %) 2.0 1.7 Basophils % (0.0 - 2.0 %) 0.1 0.5 Absolute Granulocytes (1.4 - 6.5 /CUMM) 7.8 H 7.4 H Absolute Lymphocytes (1.2 - 3.4 /CUMM) 1.9 1.4 Absolute Monocytes (0.10 - 0.60 /CUMM) 1.5 H 1.2 H Absolute Eosinophils (0.0 - 0.7 /CUMM) 0.2 0.2 Absolute Basophils (0.0 - 0.2 /CUMM) 0 0 Assessment/Plan Assessment/Plan 87 F POD 1 s/p R femur IM rodding secondary to R IT hip fx PT eval once numbness resolves, WBAT Post op abx - ancef x2 doses Pain reigmen prn Cont reg diet D/c dewitt once uo is adequate DVT ppx - Lovenox or Eliquis x4 weeks Dressing change POD2 Labs reviewed, monitor H&H All other medical mamagment per primary D/w Dr. Hdz
[2018-01-29 16:51] LABS: ABSOLUTE BASOPHIL COUNT 0 /CUMM (0.0-0.2); ABSOLUTE EOSINOPHIL COUNT 0.1 /CUMM (0.0-0.7); ABSOLUTE GRANULOCYTE CT 9.6 /CUMM (1.4-6.5); ABSOLUTE MONOCYTE COUNT 1.3 /CUMM (0.10-0.60); BASOPHIL % 0.4 % (0.0-2.0); EOSINOPHIL % 0.5 % (0-5); GRANULOCYTE % 79.9 % (42.2-75.2); MEAN CORPUSCULAR HGB 30.4 PG (27.0-31.0); MEAN CORPUSCULAR HGB CONC 32.3 G/DL (33.0-37.0); MEAN CORPUSCULAR VOLUME 93.8 FL (81.0-99.0); MEAN PLATELET VOLUME 8.2 FL (7.4-10.4); PLATELET COUNT 178 /CUMM (130-400); RBC DISTRIBUTION WIDTH 13.9 % (11.5-14.5); RED BLOOD CELL CT 2.77 /CUMM (4.20-5.40)
--- NOTE | 2018-01-29 20:26 | PN- Cardiology ---
Subjective Subjective: * Doing well after surgery. No chest discomfort or shortness of breath. Objective Vital Signs and I&Os Vital Signs Date Time Temp Pulse Resp B/P B/P Pulse O2 O2 Flow FiO2 Mean Ox Delivery Rate 01/29 1345 Room Air Room Air 01/29 0820 72 112/51 01/29 0704 97.7 72 20 112/51 100 Nasal 2.0L Cannula 01/29 0000 98 Nasal 2.0L Cannula 01/28 2340 98.3 80 20 107/54 98 Nasal 2.0L Cannula Intake & Output 01/29 1600 01/29 0800 01/29 0000 01/28 1600 01/28 0800 01/28 0000 Intake Total 810 460 600 400 200 Output Total 50 100 100 200 300 Balance 760 360 -100 600 200 -100 Intake, IV 510 400 600 400 200 Intake, Oral 300 60 Number 0 Bowel Movements Output, Urine 50 100 100 200 300 Physical Exam: General: WD/WN female in NAD; alert and oriented x 3 HEENT: NC/AT, PERRL, EOMI, right cornea is opaque Neck: no JVD, no carotid bruit Heart: RRR with 2/6 systolic murmur at the RUSB Lungs: clear bilaterally ABdomen: soft, NT, +ve bowel sounds Extremities: No edema Assessment/Plan Assessment/Plan * Patient is doing well post operatively with well controlled blood pressure and no evidence of myocardial ischemia or decompensated congrestive heart failure. Continue current medications. Continue telemetry? No
[2018-01-29 22:29] VITALS: BP 108/64
[2018-01-30 06:01] VITALS: BP 104/52
--- NOTE | 2018-01-30 07:33 | PN- Housestaff ---
Lyndsey Chappell MD,[facility] 01/30/18 0733: Subjective Follow-up For: Right Hip fracture status post mechanical fall Status post open reduction and internal fixation of right hip Complaints: no complaints Subjective: Post-Operatively, she had hypotension yesterday and was given a NS bolus of 500ml. She was started on maintenance fluids. Patient remained afebrile overnight. No tachypnea or tachycardia. Oxygen taper down to room air today. Review of Systems Constitutional: Denies: chills, fever. Cardiovascular: Denies: chest pain, orthopena. Respiratory: Denies: cough, short of breath. Gastrointestinal: Denies: abdominal pain, nausea, vomiting. Musculoskeletal: Reports: joint pain, muscle pain. Objective Last 24 Hrs of Vital Signs/I&O Vital Signs Date Time Temp Pulse Resp B/P B/P Pulse O2 O2 Flow FiO2 Mean Ox Delivery Rate 01/30 0601 99.8 81 20 104/52 94 Room Air 01/29 2229 97.8 86 16 108/64 95 01/29 1345 Room Air Room Air 01/29 0820 72 112/51 Intake & Output 01/30 0800 01/30 0000 01/29 1600 Intake Total 2300 810 Output Total 200 600 50 Balance -200 1700 760 Intake, IV 1000 510 Intake, Oral 1300 300 Number 0 0 Bowel Movements Output, Urine 200 600 50 Patient 139 lb Weight Physical Exam General Appearance: Alert, Oriented X3, Cooperative, Mild Distress Skin: No Rashes Neck: No JVD Cardiovascular: Regular Rate, Normal S1, Normal S2, systolic murmur Lungs: Clear to Auscultation, Normal Air Movement Abdomen: Normal Bowel Sounds, Soft, No Tenderness Neurological: Normal Speech, Normal Tone, Sensation Intact Extremities: No Edema, right leg covered with surgical dressing, no obvious swelling or hematoma palpated, non erythematous Vascular: Normal Pulses Current Medications: Current Medications Sig/Bozena Start time Last Medication Dose Route Stop Time Status Admin Acetaminophen 650 MG Q6P PRN 01/27 2000 AC 01/29 PO 1038 Acetaminophen 1,000 MG Q8P PRN 01/27 2000 AC 01/28 IV 2127 Apixaban 2.5 MG BID 01/29 2200 AC 01/29 PO 2113 Atorvastatin Calcium 10 MG 1700 01/27 1700 AC 01/29 PO 1744 Carbidopa/Levodopa 1 TAB 4 TIMES/DAY 01/27 1000 AC 01/29 PO 2112 Cefazolin Sodium 2 GM IQ8 01/29 0000 DC 01/29 N/A 1 UNIT IV 01/29 0829 0910 Dextrose/Sodium 1,000 ML Q20H 01/27 0145 DC 01/28 Chloride IV 1800 Dorzolamide HCl 1 GTT BID 01/27 1026 AC 01/29 OPH 2114 Escitalopram Oxalate 5 MG DAILY 01/27 1000 AC 01/29 PO 0815 Heparin Sodium 5,000 UNIT Q8 01/26 2200 DC 01/29 (Porcine) SC 1349 Levothyroxine Sodium 0.05 MG DAILY 01/27 1000 AC 01/29 PO 0816 Losartan Potassium 100 MG DAILY 01/27 1000 AC 01/29 PO 0820 Minocycline HCl 50 MG BID 01/27 1029 AC 01/29 PO 2113 Morphine Sulfate 2 MG Q4P PRN 01/26 2000 AC 01/28 IV 1917 Ondansetron HCl 4 MG Q6P PRN 01/29 1345 CAN IV Patient Medication 1 ED ONE ONE 01/29 1430 DC Teaching ED 01/29 1431 Polymyxin/ 1 GTT DAILY 01/27 1026 AC 01/29 Trimethoprim Sulfate OPH 0822 Prednisolone 1 GTT 4 TIMES/DAY 01/27 1026 AC 01/29 OPH 2113 Sodium Chloride 1,000 ML Q10H 01/29 1145 DC 01/29 IV 01/29 2144 1519 Timolol Maleate 1 GTT BID 01/26 2200 AC 01/29 OPH 2113 Last 24 Hrs of Lab/Samm Results Last 24 Hrs of Labs/Mics: Laboratory Tests 01/30/18 0655: Sodium Pending, Potassium Pending, Chloride Pending, Carbon Dioxide Pending, Anion Gap Pending, BUN Pending, Creatinine Pending, BUN/Creatinine Ratio Pending , CBC w Diff Pending, WBC Pending, RBC Pending, Hgb Pending, Hct Pending, MCV Pending, MCH Pending, MCHC Pending, RDW Pending, Plt Count Pending, MPV Pending 01/29/18 1534: CBC w Diff Cancelled, WBC Cancelled, RBC Cancelled, Hgb Cancelled, Hct Cancelled , MCV Cancelled, MCH Cancelled, MCHC Cancelled, RDW Cancelled, Plt Count Cancelled, MPV Cancelled 01/29/18 1534: Anion Gap 7, Estimated GFR 59 L, BUN/Creatinine Ratio 18.9, Lactic Acid 2.0, CBC w Diff NO MAN DIFF REQ, RBC 2.77 L, MCV 93.8, MCH 30.4, MCHC 32.3 L, RDW 13.9, MPV 8.2, Gran % 79.9 H, Lymphocytes % 8.1 L, Monocytes % 11.1 H, Eosinophils % 0.5, Basophils % 0.4, Absolute Granulocytes 9.6 H, Absolute Lymphocytes 1.0 L, Absolute Monocytes 1.3 H, Absolute Eosinophils 0.1, Absolute Basophils 0 Lines/Diet/Fluids Fluids/Infusions: none Lines: peripheral lines Restraints: none Assessment/Plan Assessment: 87-year-old woman with past medical history significant for Hypothyroidism, parkinson's disease, HTN, HLD, anxiety, depression, and right eye blindness post cataract procedure who presented to the ED after mechanical fall. She denies palpitation, chest pain, LOC, or dizziness prior to the fall. She denies head trauma, or seizure activity during the fall. She denies confusion, weakness, or numbness post the fall. Immediately after the fall she had severe right thigh pain and she wasn't able to bear weight on her right leg. At baseline she ambulates independently, at average she walks around 2 blocks daily and use bicycle intermittently at home. She can go flight of stairs without complaints. On admission she was found to have LBBB of unknown duration. She has no cardiovascular history except hypertension and never had any cardiac workup. Patient is currently being managed for Right intertrochanteric femur fracture s/p Right Hip ORIF Met's score >4. Cardiology estimated risk of cardiac event as 5%. pt agreed to the risk. Recent echocardiogram showed ejection fraction of 60% with impaired LV relaxation, mild mitral regurg, moderate hypertension and mild aortic stenosis. We held ASA before surgery Patient underwent right ORIF yesterday without any intraoperative complications under spinal anesthesia and less than 50 mL blood loss As per orthopedic recommendations, weightbearing as tolerated right lower extremity with PT Pain control as needed with Tylenol Postoperatively, at noon yesterday, after IV fluids were discontinued patient had noted to have low blood pressure. Systolic blood pressure in 80s and diastolic in 60s. Patient was given a bolus of normal saline 500 mL and was started on baseline fluids and her blood pressure improved. Her pressure remained stable overnight. Patient is on room air and oxygen has been tapered. No tachycardia or tachypnea noticed. We will pursue further workup with CAT scan if continued to be hypotensive along with drop in H&H. Acute anemia-Dilutional Patient has a drop of H&H. Baseline 12.2/37.2. Hemoglobin 3 days ago, 10.1/30.5 and today pending. Patient is asymptomatic. Does not complain of any bright red blood per rectum. No hematoma palpable on physical examination. We will check stool guaiac. This is likely secondary to dilutional anemia because of IV fluids. We dc IV fluids and will follow up h/h. Chronic medical conditions Continue her home medications for Sinemet, SSRI, Synthroid, losartan and her eyedrops. DVT prophylaxis DVT prophylaxis post surgery as per orthopedic recommendation with Eliquis Full code Problem List: 1. Intertrochanteric fracture of right femur Pain Ratin Pain Location: Right leg Pain Goal: Pain 4 or less Pain Plan: Continue current pain medications Tomorrow's Labs & Rationales: CBC for anemia B E P for electrolytes DVT/Prophylaxis: pharmacological Consulting Request: Consulting Specialty: Orthopedics Jim Winn MDesha 01/30/18 1045: Attending MD Review Statement Attending Statement Attending MD Statement: examined this patient, discuss w/resident/PA/FANS CLERK, agreed w/resident/PA/FANS CLERK, discussed with family, reviewed EMR data (avail), discussed with nursing, discussed with case mgmt, reviewed images, amended to note Attending Assessment/Plan: Patient seen and examined, doing well. She does have pain in her right hip upon movement. She does have a drop in her blood counts today. She has dropped significant amount compared to her baseline. Operative report says less than 50 mL estimated blood loss. Patient did drop her blood pressure yesterday when she tried to get up with physical therapy. She was asymptomatic and blood pressure responded to IV fluids. Vital Signs Date Time Temp Pulse Resp B/P B/P Pulse O2 O2 Flow FiO2 Mean Ox Delivery Rate 01/30 0914 81 110/50 01/30 0601 99.8 81 20 104/52 94 Room Air 01/29 2229 97.8 86 16 108/64 95 01/29 1345 Room Air Room Air on exam; aox3, nad. cv; s1,s2, rrr resp; clear and; soft, nt, bs+ ext; no edema. ms: No bruising on right hip, + pressure dressing. Laboratory Tests 01/30 01/29 0655 1534 Chemistry Sodium (137 - 145 mmol/L) 139 Potassium (3.5 - 5.1 mmol/L) 3.7 Chloride (98 - 107 mmol/L) 108 H Carbon Dioxide (22 - 30 mmol/L) 24 Anion Gap (5 - 16) 7 BUN (7 - 17 mg/dL) 19 H Creatinine (0.5 - 1.0 mg/dL) 0.7 Estimated GFR (>60 ml/min) > 60 BUN/Creatinine Ratio (7 - 25 %) 27.1 H Total Bilirubin (0.2 - 1.3 mg/dL) 0.4 Direct Bilirubin (< 0.4 mg/dL) 0.4 AST (14 - 36 U/L) 32 ALT (9 - 52 U/L) 16 Alkaline Phosphatase (<127 U/L) 73 Total Protein (6.3 - 8.2 g/dL) 4.3 L Albumin (3.5 - 5.0 g/dL) 2.1 L Hematology CBC w Diff NO MAN DIFF REQ Cancelled WBC (4.8 - 10.8 /CUMM) 10.2 Cancelled RBC (4.20 - 5.40 /CUMM) 2.51 L Cancelled Hgb (12.0 - 16.0 G/DL) 7.8 L Cancelled Hct (37 - 47 %) 23.4 L Cancelled MCV (81.0 - 99.0 FL) 93.1 Cancelled MCH (27.0 - 31.0 PG) 31.0 Cancelled MCHC (33.0 - 37.0 G/DL) 33.3 Cancelled RDW (11.5 - 14.5 %) 13.8 Cancelled Plt Count (130 - 400 /CUMM) 181 Cancelled MPV (7.4 - 10.4 FL) 7.8 Cancelled Gran % (42.2 - 75.2 %) 70.8 Lymphocytes % (20.5 - 51.1 %) 14.9 L Monocytes % (1.7 - 9.3 %) 12.1 H Eosinophils % (0 - 5 %) 1.8 Basophils % (0.0 - 2.0 %) 0.4 Absolute Granulocytes (1.4 - 6.5 /CUMM) 7.2 H Absolute Lymphocytes (1.2 - 3.4 /CUMM) 1.5 Absolute Monocytes (0.10 - 0.60 /CUMM) 1.2 H Absolute Eosinophils (0.0 - 0.7 /CUMM) 0.2 Absolute Basophils (0.0 - 0.2 /CUMM) 0 Retic Count (0.5 - 2.0 %) 2.88 H 01/29 1534 Chemistry Sodium (137 - 145 mmol/L) 136 L Potassium (3.5 - 5.1 mmol/L) 3.6 Chloride (98 - 107 mmol/L) 102 Carbon Dioxide (22 - 30 mmol/L) 27 Anion Gap (5 - 16) 7 BUN (7 - 17 mg/dL) 17 Creatinine (0.5 - 1.0 mg/dL) 0.9 Estimated GFR (>60 ml/min) 59 L BUN/Creatinine Ratio (7 - 25 %) 18.9 Lactic Acid (0.7 - 2.1 mmol/L) 2.0 Hematology CBC w Diff NO MAN DIFF REQ WBC (4.8 - 10.8 /CUMM) 12.0 H RBC (4.20 - 5.40 /CUMM) 2.77 L Hgb (12.0 - 16.0 G/DL) 8.4 L Hct (37 - 47 %) 26.0 L MCV (81.0 - 99.0 FL) 93.8 MCH (27.0 - 31.0 PG) 30.4 MCHC (33.0 - 37.0 G/DL) 32.3 L RDW (11.5 - 14.5 %) 13.9 Plt Count (130 - 400 /CUMM) 178 MPV (7.4 - 10.4 FL) 8.2 Gran % (42.2 - 75.2 %) 79.9 H Lymphocytes % (20.5 - 51.1 %) 8.1 L Monocytes % (1.7 - 9.3 %) 11.1 H Eosinophils % (0 - 5 %) 0.5 Basophils % (0.0 - 2.0 %) 0.4 Absolute Granulocytes (1.4 - 6.5 /CUMM) 9.6 H Absolute Lymphocytes (1.2 - 3.4 /CUMM) 1.0 L Absolute Monocytes (0.10 - 0.60 /CUMM) 1.3 H Absolute Eosinophils (0.0 - 0.7 /CUMM) 0.1 Absolute Basophils (0.0 - 0.2 /CUMM) 0 A/P; 87 y/o F with pmh sig for HTN, HLD, Parkinson's disease, right sympathetic cornea, hypothyroidism and anxiety admitted with a mechanical fall and sustained a right intertrochanteric femur fracture. Status post Intramedullary rodding right femur postop day #2 today. Episode of hypotension yesterday with physical therapy. Patient asymptomatic and responded to IV fluids. Her blood counts continue to drop. We will do anemia workup including checking stool for guaiac. We'll recheck her blood counts later today and if she continues to drop then she will need a transfusion. At that piint we will also get imaging to rule out any RPB or hematoma. We'll DC the Camacho catheter today. Patient has not had a bowel movement, bowel regimen has been ordered. Patient to work with physical therapy today and then we will monitor her blood pressure. This am it has been stable. DVT px. Elqiuis. Possible discharge to rehab in am if stable.
[2018-01-30 08:04] LABS: ABSOLUTE BASOPHIL COUNT 0 /CUMM (0.0-0.2); ABSOLUTE EOSINOPHIL COUNT 0.2 /CUMM (0.0-0.7); ABSOLUTE GRANULOCYTE CT 7.2 /CUMM (1.4-6.5); ABSOLUTE LYMPH COUNT 1.5 /CUMM (1.2-3.4); ABSOLUTE MONOCYTE COUNT 1.2 /CUMM (0.10-0.60); BASOPHIL % 0.4 % (0.0-2.0); EOSINOPHIL % 1.8 % (0-5); GRANULOCYTE % 70.8 % (42.2-75.2); HEMATOCRIT 23.4 % (37-47); MEAN CORPUSCULAR HGB CONC 33.3 G/DL (33.0-37.0); MEAN CORPUSCULAR VOLUME 93.1 FL (81.0-99.0); MEAN PLATELET VOLUME 7.8 FL (7.4-10.4); PLATELET COUNT 181 /CUMM (130-400); RBC DISTRIBUTION WIDTH 13.8 % (11.5-14.5); RED BLOOD CELL CT 2.51 /CUMM (4.20-5.40); WHITE BLOOD CELL COUNT 10.2 /CUMM (4.8-10.8)
[2018-01-30] MEDS ORDERED: ELIQUIS2.5 M1 PO ×2 (09:09→09:13)
[2018-01-30] MEDS ORDERED: MIRALAX119 GM PO (09:09)
[2018-01-30] MEDS ORDERED: SENNA PLUS TAB1 EACH PO (09:09)
[2018-01-30] MEDS ORDERED: TYLENOL325 M1 PO (09:14)
--- NOTE | 2018-01-30 13:09 | PN- Orthopedic ---
Subjective Subjective: No acute overnight events reported. Pain controlled. Pt has stood and transferred to chair, has yet to ambulate. Denies chest pain, shortness of breath and difficulty breathing. Denies nausea and vomitting. Has dewitt catheter in place presently. Had bowel movement. Objective Vital Signs and I&Os Vital Signs Date Time Temp Pulse Resp B/P B/P Pulse O2 O2 Flow FiO2 Mean Ox Delivery Rate 01/30 0914 81 110/50 01/30 0601 99.8 81 20 104/52 94 Room Air 01/29 2229 97.8 86 16 108/64 95 Intake & Output 01/30 1600 01/30 0800 01/30 0000 01/29 1600 01/29 0800 01/29 0000 Intake Total 2300 810 460 Output Total 600 200 600 50 100 100 Balance -600 -200 1700 760 360 -100 Intake, IV 1000 510 400 Intake, Oral 1300 300 60 Number 0 0 Bowel Movements Output, Urine 600 200 600 50 100 100 Patient 139 lb Weight Physical Exam: General: Alert and oriented x3, no acute distress Cardiac: RRR, s1s2 Pulm: CTA bilaterally Abd: Non-tender, non-distended Extremities: Moves all extremities, distal sensation intact. Skin warm and well perfused. DP pulses palpable bilaterally. Bilateral calves soft and non- tender. Surgical site: RIght thigh. Dressing dry and intact. Thigh compartment soft. Skin edges well approximated with sheng. No drainage. New dressing applied. Assessment/Plan Assessment/Plan This is a 87 year old female, history of blindness in right eye, parkinsons, and hypertension. Is POD 2, s/p ORIF R intertrochanteric femur fracture -Recommend DC dewitt catheter -OOB, WBAT -DVT ppx: eliquis -Continue current pain regimen -Dressing to be changed daily, dry -Diet as tolerated -Primary management per medical team Will discuss plan of care with Dr. Hdz
[2018-01-30 13:52] VITALS: BP 84/40
[2018-01-30 15:21] VITALS: BP 106/50
[2018-01-30 16:58] LABS: ABSOLUTE BASOPHIL COUNT 0.1 /CUMM (0.0-0.2); ABSOLUTE EOSINOPHIL COUNT 0.2 /CUMM (0.0-0.7); ABSOLUTE LYMPH COUNT 1.5 /CUMM (1.2-3.4); ABSOLUTE MONOCYTE COUNT 1.6 /CUMM (0.10-0.60); BASOPHIL % 0.6 % (0.0-2.0); EOSINOPHIL % 1.5 % (0-5); GRANULOCYTE % 72.7 % (42.2-75.2); HEMATOCRIT 25.6 % (37-47); MEAN CORPUSCULAR HGB 30.5 PG (27.0-31.0); MEAN CORPUSCULAR HGB CONC 32.5 G/DL (33.0-37.0); MEAN CORPUSCULAR VOLUME 93.8 FL (81.0-99.0); MEAN PLATELET VOLUME 7.7 FL (7.4-10.4); PLATELET COUNT 214 /CUMM (130-400); RBC DISTRIBUTION WIDTH 14.1 % (11.5-14.5); RED BLOOD CELL CT 2.73 /CUMM (4.20-5.40); WHITE BLOOD CELL COUNT 12.4 /CUMM (4.8-10.8)
[2018-01-30 22:05] VITALS: BP 124/56
--- NOTE | 2018-01-31 04:06 | PN- Housestaff ---
See Addendum Lyndsey Chappell MD,[facility] 01/31/18 0405: Subjective Follow-up For: Right Hip fracture status post mechanical fall Status post open reduction and internal fixation of right hip Complaints: no complaints Subjective: Post-Operatively, she had hypotension yesterday and was given a NS bolus of 500ml. She was started on maintenance fluids. Patient remained afebrile overnight. No tachypnea or tachycardia. Oxygen taper down to room air. Hemoglobin was repeated yesterday and was stable. Review of Systems Constitutional: Denies: chills, fever. Cardiovascular: Denies: chest pain, palpitations. Respiratory: Denies: cough, short of breath. Gastrointestinal: Denies: abdominal pain, nausea, vomiting. Musculoskeletal: Reports: joint pain. Objective Last 24 Hrs of Vital Signs/I&O Vital Signs Date Time Temp Pulse Resp B/P B/P Pulse O2 O2 Flow FiO2 Mean Ox Delivery Rate 01/30 2205 98.3 81 20 124/56 97 Room Air 01/30 1521 106/50 01/30 1352 98.7 85 20 84/40 97 Room Air 01/30 0914 81 110/50 01/30 0601 99.8 81 20 104/52 94 Room Air Intake & Output 01/31 0800 01/31 0000 01/30 1600 Intake Total 250 980 Output Total 600 Balance 250 380 Intake, Oral 250 980 Output, Urine 600 Physical Exam General Appearance: Alert, Oriented X3, Cooperative HEENT: Atraumatic Neck: No JVD Cardiovascular: Regular Rate, Normal S1, Normal S2, Systolic murmur Lungs: Clear to Auscultation, Normal Air Movement Abdomen: Normal Bowel Sounds, Soft, No Tenderness Neurological: Normal Speech, Normal Tone, Sensation Intact Extremities: No Edema, right leg covered with surgical dressing, no obvious swelling or hematoma palpated, non erythematous Vascular: Normal Pulses Current Medications: Current Medications Sig/Bozena Start time Last Medication Dose Route Stop Time Status Admin Acetaminophen 650 MG .STK-MED ONE 01/30 1642 DC PO 01/30 1643 Acetaminophen 650 MG Q6P PRN 01/27 2000 AC 01/30 PO 1644 Acetaminophen 1,000 MG Q8P PRN 01/26 IV 2126 Apixaban 2.5 MG BID 01/29 2200 AC 01/30 PO 213 Atorvastatin Calcium 10 MG 1700 01/27 1700 AC 01/30 PO 1645 Carbidopa/Levodopa 1 TAB 4 TIMES/DAY 01/27 1000 AC 01/30 PO 213 Dorzolamide HCl 1 GTT BID 01/27 1026 AC 01/30 OPH 213 Escitalopram Oxalate 5 MG DAILY 01/27 1000 AC 01/30 PO 0913 Levothyroxine Sodium 0.05 MG DAILY 01/27 1000 AC 01/30 PO 0913 Losartan Potassium 100 MG DAILY 01/27 1000 AC 01/29 PO 0820 Minocycline HCl 50 MG BID 01/27 1029 AC 01/30 PO 2138 Morphine Sulfate 2 MG Q4P PRN 01/26 2000 AC 01/28 IV 1917 Polyethylene Glycol 17 GM DAILY 01/30 1000 AC 01/30 PO 0916 Polymyxin/ 1 GTT DAILY 01/27 1026 AC 01/30 Trimethoprim Sulfate OPH 0912 Prednisolone 1 GTT 4 TIMES/DAY 01/27 1026 AC 01/30 OPH 2138 Senna/Docusate Sodium 1 TAB BID PRN 01/30 0830 AC PO Timolol Maleate 1 GTT BID 01/26 2200 AC 01/30 OPH 213 Last 24 Hrs of Lab/Samm Results Last 24 Hrs of Labs/Mics: Laboratory Tests 01/30/18 1612: CBC w Diff NO MAN DIFF REQ, RBC 2.73 L, MCV 93.8, MCH 30.5, MCHC 32.5 L, RDW 14.1, MPV 7.7, Gran % 72.7, Lymphocytes % 12.4 L, Monocytes % 12.8 H, Eosinophils % 1.5, Basophils % 0.6, Absolute Granulocytes 9.0 H, Absolute Lymphocytes 1.5, Absolute Monocytes 1.6 H, Absolute Eosinophils 0.2, Absolute Basophils 0.1 01/30/18 0655: Anion Gap 7, Estimated GFR > 60, BUN/Creatinine Ratio 27.1 H, Total Bilirubin 0.4, Direct Bilirubin 0.4, AST 32, ALT 16, Alkaline Phosphatase 73, Total Protein 4.3 L, Albumin 2.1 L, CBC w Diff NO MAN DIFF REQ, RBC 2.51 L, MCV 93.1, MCH 31.0, MCHC 33.3, RDW 13.8, MPV 7.8, Gran % 70.8, Lymphocytes % 14.9 L , Monocytes % 12.1 H, Eosinophils % 1.8, Basophils % 0.4, Absolute Granulocytes 7.2 H, Absolute Lymphocytes 1.5, Absolute Monocytes 1.2 H, Absolute Eosinophils 0.2, Absolute Basophils 0, Retic Count 2.88 H Lines/Diet/Fluids Fluids/Infusions: none Lines: peripheral lines Restraints: none Assessment/Plan Assessment: 87-year-old woman with past medical history significant for Hypothyroidism, parkinson's disease, HTN, HLD, anxiety, depression, and right eye blindness post cataract procedure who presented to the ED after mechanical fall. She denies palpitation, chest pain, LOC, or dizziness prior to the fall. She denies head trauma, or seizure activity during the fall. She denies confusion, weakness, or numbness post the fall. Immediately after the fall she had severe right thigh pain and she wasn't able to bear weight on her right leg. At baseline she ambulates independently, at average she walks around 2 blocks daily and use bicycle intermittently at home. She can go flight of stairs without complaints. On admission she was found to have LBBB of unknown duration. She has no cardiovascular history except hypertension and never had any cardiac workup. Patient is currently being managed for Right intertrochanteric femur fracture s/p Right Hip ORIF Met's score >4. Cardiology estimated risk of cardiac event as 5%. pt agreed to the risk. Recent echocardiogram showed ejection fraction of 60% with impaired LV relaxation, mild mitral regurg, moderate hypertension and mild aortic stenosis. We held ASA before surgery Patient underwent right ORIF without any intraoperative complications under spinal anesthesia and less than 50 mL blood loss As per orthopedic recommendations, weightbearing as tolerated right lower extremity with PT Pain control as needed with Tylenol Postoperatively, few days, after IV fluids were discontinued patient had noted to have low blood pressure. Systolic blood pressure in 80s and diastolic in 60s. Patient was given a bolus of normal saline 500 mL and was started on baseline fluids and her blood pressure improved. Her pressure remained stable. Patient is on room air and oxygen has been tapered. No tachycardia or tachypnea noticed. We will pursue further workup with CAT scan if continued to be hypotensive along with drop in H&H. Acute anemia-Dilutional Patient has a drop of H&H. Baseline 12.2/37.2. Hemoglobin stable after drop and today's pending. Patient is asymptomatic. Does not complain of any bright red blood per rectum. No hematoma palpable on physical examination. We will check stool guaiac. This is secondary to dilutional anemia because of IV fluids. Chronic medical conditions Continue her home medications for Sinemet, SSRI, Synthroid, losartan and her eyedrops. DVT prophylaxis DVT prophylaxis post surgery as per orthopedic recommendation with Eliquis Problem List: 1. Intertrochanteric fracture of right femur Pain Ratin Pain Location: Right leg Pain Goal: Pain 4 or less Pain Plan: Continue current pain medications Tomorrow's Labs & Rationales: cbc for anemia DVT/Prophylaxis: pharmacological Consulting Request: Consulting Specialty: Orthopedics Shayy Choi MD 01/31/18 1256: Attending MD Review Statement Attending Statement Attending MD Statement: examined this patient, discuss w/resident/PA/AEROSPACE QUALITY ENGINEER, agreed w/resident/PA/AEROSPACE QUALITY ENGINEER, reviewed EMR data (avail), discussed with nursing, discussed with case mgmt, reviewed images Attending Assessment/Plan: Patient is doing well. Her Camacho was taken out, worked with PT and hemoglobin is stable albeit low. There was no acute drop and she's remained in the range of 7.8-8.4. At this point I think she is stable to go to [facility] with close outpatient follow-up. Specifically she needs follow-up for her hemoglobin given that she is leaving on Eliquis and already takes aspirin. She also needs follow -up for a mild to moderate and pulmonary hypertension with cardiology follow- up.
[2018-01-31 07:15] VITALS: BP 124/58
[2018-01-31 08:38] LABS: ABSOLUTE BASOPHIL COUNT 0 /CUMM (0.0-0.2); ABSOLUTE EOSINOPHIL COUNT 0.3 /CUMM (0.0-0.7); ABSOLUTE GRANULOCYTE CT 7.1 /CUMM (1.4-6.5); ABSOLUTE LYMPH COUNT 1.8 /CUMM (1.2-3.4); ABSOLUTE MONOCYTE COUNT 1.1 /CUMM (0.10-0.60); BASOPHIL % 0.4 % (0.0-2.0); EOSINOPHIL % 2.6 % (0-5); GRANULOCYTE % 68.9 % (42.2-75.2); HEMATOCRIT 23.2 % (37-47); MEAN CORPUSCULAR HGB CONC 33.4 G/DL (33.0-37.0); MEAN CORPUSCULAR VOLUME 92.8 FL (81.0-99.0); MEAN PLATELET VOLUME 7.3 FL (7.4-10.4); PLATELET COUNT 242 /CUMM (130-400); RBC DISTRIBUTION WIDTH 14.2 % (11.5-14.5); WHITE BLOOD CELL COUNT 10.4 /CUMM (4.8-10.8)
[2018-01-31 12:32] VITALS: BP 130/50
[2018-01-31 15:26] VITALS: BP 118/56
== END 2018-01-31 15:27 | DRG 481 ==
LOC: ERH 17:20 → ERHI 19:41 → 2NB 19:41 → CANRESERV 20:35 → ENRESERV 20:35 → 2NB 01-27 12:47 → ENTRNSPT 01-27 12:49 → EDTRNSPT 01-27 12:58 → EDTRNSPTSTS 01-27 12:58 → 2NB 01-27 13:10 → CMPTRNSPT 01-27 13:21 → 2NB 01-27 13:35 → ENTRNSPT 01-28 17:19 → EDTRNSPTSTS 01-28 17:36 → EDTRNSPT 01-28 17:36 → CMPTRNSPT 01-28 18:01 → 2NB 01-31 15:27
PROVIDERS: Emergency Medicine; Internal Medicine; Student in an Organized Health Care Education/Training Program
PROC: 0QS636Z Reposition Right Upper Femur with Intramedullary Internal Fixation Device, Percutaneous Approach (ICD-10-PCS; principal; 2018-01-28)
DX: S72.141A Displaced intertrochanteric fracture of right femur, initial encounter for closed fracture (principal); D62 Acute posthemorrhagic anemia; I27.20 Pulmonary hypertension, unspecified; I95.9 Hypotension, unspecified; G20 Parkinson's disease; E86.0 Dehydration; I35.0 Nonrheumatic aortic (valve) stenosis; I44.7 Left bundle-branch block, unspecified; I10 Essential (primary) hypertension; E03.9 Hypothyroidism, unspecified; F41.9 Anxiety disorder, unspecified; W07.XXXA Fall from chair, initial encounter; Z91.81 History of falling; Y92.003 Bedroom of unspecified non-institutional (private) residence as the place of occurrence of the external cause; Z94.7 Corneal transplant status; H54.40 Blindness, one eye, unspecified eye; E78.5 Hyperlipidemia, unspecified
CPT/HCPCS: 2NBSP; ERO; 36415; 36592; 71045; 72170; 73502-RT; 81001; 82436; 87086; 93005; 93010; 93306; 96374; 96375; 97110-GO; 97116-GO; 97162-GP; 97530-GO; J0131; J0690; J1644; J3490; J7042; Q2036